=== PATIENT | female | born 1985 | race Asian ===

== ENCOUNTER 2024-04-04 09:22 | Outpatient (AMB) | payer OTHER, SELFPAY ==
--- NOTE | 2024-04-04 09:58 | AM.OFFWIN_ITS ---
Intake Vital Signs 04/04/24 10:08 Height 4 ft 7 in Weight 149 lb 6 oz BMI 34.7 BP 132/64 Blood Pressure Location Rt brachial Position Sitting Respiration 16 Pulse 72 Pulse Source Pulse Oximeter Temp 98.8 F Temp Source Oral Pulse Oximetry (%) 99 Oxygen Delivery Method Room Air Intake Visit Reasons: est/ coughing/headache/eye sore Intake Note: patient here c/o coughing, headache, sore eyes. Patient Tobacco Use Status: Never used Tobacco Instructor Traffic Safety Required: Yes Instructor Traffic Safety Language: Tamil Instructor Traffic Safety Name: Catalina [id number] Is last menstrual period known: Yes Last menstrual period: 03/07/24 Post menopausal: No Patient : No Allergies No Known Allergies Allergy (Verified 04/04/24 10:32) Medication List - Last Reconciled 04/04/24 by Horacio Silva CNP budesonide-formoterol 160-4.5 mcg/actuation inhalation cetirizine (Zyrtec) 10 mg PO DAILY Do you need a note to return to daycare/school/sports/work: No HPI HPI Comments History of Present Illness Details 38 y/o Tamil speaking female presents wi th complaints of severe headache, productive cough with yellow phlegm, and generalized body aches. Her symptoms have been ongoing for the past 4 days and have progressively worsened. She has been taking Tylenol every 6 hours with slight improvement. She notes associated fever but denies chills. She denies sick contacts. She had a negative home covid test yesterday. PFSH Social History Patient Tobacco Use Status: Never used Tobacco Patient : No Female Reproductive History Menstrual Date of last menstrual period: 03/07/24 Review of Systems Const Details: Denies chills, Denies fatigue, Denies fever(s), Denies headache(s) and Denies weakness ENT Reports as per HPI Cardiac Denies chest pain, Denies claudication, Denies leg edema, Denies lightheadedness, Denies palpitations, Denies dyspnea, Denies dyspnea on exertion, Denies orthopnea and Denies other (Loss of consciousness) Resp Reports cough, Denies excessive phlegm production, Denies dyspnea, Denies dyspnea on exertion, Denies snoring and Denies wheezing Physical Exam Vital Signs: Last Vital Signs Temp 98.8 F 04/04/24 10:08 Pulse 72 04/04/24 10:08 Resp 16 04/04/24 10:08 BP 132/64 04/04/24 10:08 Pulse Ox 99 04/04/24 10:08 Oxygen Delivery Method Room Air 04/04/24 10:08 BMI result Body Mass Index 34.7 Const Other: General: comfortable and no acute distress Orientation/consciousness: patient oriented x3 ENT Head is normocephalic Bilateral ear canal and TM are normal Nasal turbinates and oropharynx are pink and moist Sinuses are nontender with palpation No auricular or cervical lymphadenopathy Chest Chest palpation & inspection: normal inspection of the chest Resp Auscultation: clear to auscultation bilaterally Cardiac Palpation: normal PMI Heart sounds: S1 normal heart sound present, S2 normal heart sound present, no gallops, no murmur, no rubs Assessment & Plan Assessment & Plan (1) Viral upper respiratory illness: Code(s): J06.9 - Acute upper respiratory infection, unspecified Plan: Likely viral illness though possibly allergies. No exam evidence of bacterial infection Viral illness There is no antibiotic medication for viruses.? They must run their course.? Most average 5-7 days but 7-10 days is not uncommon and up to 14 days is still possible.? A cough is often the last symptom to resolve and this can last for weeks in some cases. Rest Hydrate well -? Drink plenty of fluids.? Especially water. Tylenol or ibuprofen for muscle aches, headache, fever/discomfort Cannot rule out COVID-19/RSV/Flu infection Nasal swab acquired and will be sent to the lab Zyrtec as prescribed Return for new or worsening symptoms Verbalized understanding and agreed with treatment plan. Orders: Orders SARS-CoV2/FLU/RSV Today J06.9 - Acute upper respiratory infection, unspecified Medications: New cetirizine (Zyrtec) 10 mg PO DAILY 30 tabs 0RF Coding Level of Care Code Est Pt Level 3 (78102) Diagnoses Viral upper respiratory illness J06.9
[2024-04-04 10:08] VITALS: BP 132/64; PULSE 72; RESP 16; TEMP 37.1; O2SAT 99; BMI 34.7
== END 2024-04-04 10:34 | disposition home or self-care (01) ==
PROVIDERS: Visit Provider Nurse Practitioner Family
DX: J06.9 Acute upper respiratory infection, unspecified (principal)

== ENCOUNTER 2024-04-04 09:22 | Outpatient (REF) | payer OTHER, SELFPAY ==
[2024-04-04 15:47] LABS: Influenza A PCR NEGATIVE (Negative); Influenza B PCR NEGATIVE (Negative); Resp Syncy Virus RNA Qual PCR NEGATIVE (Negative); SARS COV2 PCR INHOUSE NEGATIVE (Negative)
== END 2024-04-04 09:23 | disposition home or self-care (01) ==
LOC: HO.LAB 09:22
PROVIDERS: Visit Provider Nurse Practitioner Family
DX: J06.9 Acute upper respiratory infection, unspecified (principal)
CPT/HCPCS: 0241U; 99212

== ENCOUNTER 2024-04-17 09:13 | Outpatient (AMB) | payer OTHER, SELFPAY ==
--- NOTE | 2024-04-17 09:16 | MHC.PC.OV ---
Vital Signs 04/17/24 09:23 Height 4 ft 7 in Weight 150 lb BMI 34.9 BP 122/70 Blood Pressure Location Rt brachial Position Sitting Respiration 12 Pulse 73 Pulse Source Pulse Oximeter Pulse Oximetry (%) 98 Oxygen Delivery Method Room Air Intake Visit Reasons: est care/asthma Intake Note: follow up on asthma Fork Truck Driver Required: Yes Fork Truck Driver Language: [place] Fork Truck Driver Name: Catalina [id number] Allergies No Known Allergies Allergy (Verified 04/17/24 09:27) Medication List - Last Reconciled 04/17/24 by Linda Boogie, [facility] budesonide-formoterol 160-4.5 mcg/actuation inhalation cetirizine (Zyrtec) 10 mg PO DAILY Tobacco use date assessed: 04/17/24 Dental Screening Dental Screen Date: 04/17/24 Did you have a dental visit in the last 12 months?: Yes Did you have a dental problem in the last 6 months where you did not have access to dental care?: No Was dental information given to patient?: Patient has dentist HPI HPI Comments History of Present Illness Details History of Present Illness The patient is a 38-year-old female presenting with eczema, obesity, asthma and allergic rhinitis. She reports using an inhaler for her asthma w/ good control. She admits to not rinsing her mouth after use. She also sometimes uses Zyrtec for allergies but notes experiencing cold-like symptoms and headaches occasionally for her allergy sx, of which are resolved @ current time. No surgeries have been performed in the past. - Utilizes an anthropology instructor for the appointment, Fork Truck Driver [id number]. - No surgeries or major medical events noted in the past. Health Maintenance - Tdap 2022 - Discussion regarding flu vaccination, done today - Inquiry into updating blood work. - Review of contraception and last Pap smear status, done at [facility] in the last 1 year ROS c/o itchy ears bialt c/o generalized joint aches and pains assoc w/ fatigue, present for years Physical Exam General: Well developed, well nourished, in no acute distress. Appears stated age. Head: Normocephalic, atraumatic. Eyes: Pupils are equal, round and reactive to light and accommodation. Conjunctivae are clear. Vision grossly normal. No glasses worn. Ears: Tympanic membranes clear bilaterally, external auditory canal within normal limits. Itchy, cream prescribed for use as needed. Nose: Patent, without discharge. Mouth: There are no ulcers or lesions noted. No inflammation, no post nasal drip, no plaques nor exudates. Advised to rinse mouth after inhaler use to prevent rash. Neck: Supple, no adenopathy or thyromegaly. No pain upon palpation. Lungs: Clear to auscultation bilaterally. No rales, rhonchi or wheeze noted. Good air flow in all valdez. Advised to continue using inhaler. Heart: Regular rate and rhythm. No murmurs, click, rubs or gallops are noted. Abdomen: Bowel sounds present in all quadrants. The abdomen is soft, nontender, with no masses or organomegaly noted. No hernias are noted. Musculoskeletal: Joints are nontender, without swelling, redness, or effusions. Range of motion is observed to be normal. Pulses: Peripheral pulses are equal and palpable bilaterally. Extremities: No clubbing, cyanosis nor edema is noted. Neurologic: Gait and station normal. Cranial Nerves 2-12 intact. Motor strength grossly symmetrical and intact. No sensory loss. Balance normal. Skin: No rashes, ulcers, or lesions noted. Turgor is good. Skin color is good. Hair and nails are without abnormalities. Psych: Normal eye contact, affect and mood appropriate, and normal interactions. Patient is alert and appropriate to context. Mood is reported as good, no concerns about anxiety or depression. Plan - Asthma: Continue current inhaler use; emphasize rinsing mouth post-use. - Allergic Rhinitis: Continue with Zyrtec as needed for symptoms. - Administer Flu vaccine today - Order blood work for general health monitoring. - Evaluate records for updated Pap smear status and arrange follow-up if necessary. Patient was informed and verbally consented to the use of an ambient scribe for clinic note documentation during this visit. Discussion Notes I discussed the importance of rinsing the mouth after using the asthma inhaler to prevent oral irritation. We reviewed her current asthma and allergy management, emphasizing adherence to medication. We discussed vaccinations. We agreed on completing a blood work panel today to monitor her general health status. Patient Instructions - Rinse your mouth with water after using the inhaler to avoid oral rash. - Continue using Zyrtec for allergy symptoms as needed. - Receive the Tdap vaccine today. - Receive the flu shot today. - Complete blood work as ordered. - Follow up on Pap smear status and schedule accordingly. - desonide for external eczema of ears RTO 1 year CPE, sooner PRN [facility] Social History Housing: Apartment Patient Tobacco Use Status: Never used Tobacco Cognitive needs: No Hearing needs: No Vision needs: No Questionnaire PHQ-9 Over the last 2 weeks, how often have you been bothered by any of the following problems? 1. Little interest or pleasure in doing things: not at all 2. Feeling down, depressed, or hopeless: not at all 3. Trouble falling or staying asleep, or sleeping too much: several days 4. Feeling tired or having little energy: several days 5. Poor appetite or overeating: several days 6. Feeling bad about yourself - or that you are a failure or have let yourself or your family down: not at all 7. Trouble concentrating on things, such as reading the newspaper or watching television: several days 8. Moving or speaking so slowly that other people could have noticed. Or the opposite - being so fidgety or restless that you have been moving around a lot more than usual: several days 9. Thoughts that you would be better off or of hurting yourself in some way: not at all Total score: 5 Depression Screening Interpretation: Negative Depression Screening Done: Yes 93975 - PHQ-9 Billing: Yes Source: Developed by Drs. Jeremy Tristan, Kayla Toure, Bayron Manrique and colleagues, with an educational britt from [employer] Thrive Questionnaire Date Thrive assessed: 04/17/24 I am a: Patient What is your living situation today?: I have a steady place to live Within the past 12 months, did the food you bought not last and you didn't have the money to get more?: Sometimes True Within the past 12 months, did you worry whether your food would run out before you got money to buy more?: Never true Do you have trouble paying for medicines?: No Do you have trouble getting transportation to medical appointments?: No Do you have trouble paying your heating and electricity bill?: No Do you have trouble taking care of your child, family member or friend?: Yes Do you have trouble with day-to-day activities such as bathing, preparing meals, shopping, managing finances, etc.?: No Are you currently unemployed and looking for a job?: No Are you interested in more education?: No Please select the resources that you would like help with: None Currently or been in a relationship where the following occur: No concerns reported THRIVE Score: 1 AUDIT C Alcohol Use Questionnaire (AUDIT-C) 1. How often do you have a drink containing alcohol?: Never 3. How often do you have six or more drinks on one occasion?: Never Total Score: 0 Score Reviewed/Action Taken: Yes ARI-7 AMB Questionnaire ARI-7 Date ARI - 7 assessed: 04/17/24 Feeling nervous, anxious, or on edge: 0 = Not at all Not being able to stop or control worryin = Several days Worrying too much about different things: 0 = Not at all Trouble relaxin = Several days Being so restless that it is hard to sit still: 0 = Not at all Becoming easily annoyed or irritable: 0 = Not at all Feeling afraid as if something awful might happen: 0 = Not at all Total ARI-7 score (0-4 normal; 5-9 mild; 10-14 moderate; 15-21 severe): 2 Source: Developed by Drs. Jeremy Tristan, Kayla Toure, Bayron Manrique and colleagues, with an educational britt from [employer] ARI-7 Assessment Billing ARI-7 Assessment Tool: ARI-7 Assessment 86289 ACT Questionnaire In the past 4 weeks, how much of the time did your asthma keep you from getting as much done at work, school or at home?: None of the time During the past 4 weeks, how often have you had shortness of breath?: Not at all During the past 4 weeks, how often did your asthma symptoms wake you up at night or earlier than usual in the morning?: Not at all During the past 4 weeks, how often have you had to use your rescue inhaler or nebulizer medication?: Not at all How would you rate your asthma control during the past 4 weeks?: Completely controlled ACT Interpretation: Negative Score: 25 Physical exam (Primary Care) Vital Signs: Last Vital Signs Pulse 73 04/17/24 09:23 Resp 12 04/17/24 09:23 BP 122/70 04/17/24 09:23 Pulse Ox 98 04/17/24 09:23 Oxygen Delivery Method Room Air 04/17/24 09:23 BMI result Body Mass Index 34.9 BMI Assessment/Plan discussion: High BMI High, discussed plan: lifestyle Tobacco/Smoking Status: Tobacco use Status Tobacco use date assessed 04/17/24 04/17/24 09:25 Patient Tobacco Use Status Never used Tobacco 04/17/24 09:16 PHQ-9: PHQ-9 Score PHQ-9: Total score 5 04/17/24 10:00 Depression Screening Interpretation: Negative Thrive Assessment: Date of Thrive Assessment Date Thrive assessed 04/17/24 04/17/24 09:16 Currently or been in a relationship where the following occur: No concerns reported Office Procedures Flu Questionnaire Does the patient have a severe egg allergy?: No Does the patient have severe life threatening allergies?: No Does the patient have a fever or illness today?: No Has the patient ever had Guillain-Decorah Syndrome?: No Has the patient ever had any past reaction to a flu shot?: No Immunizations Fluarix Triv 9122-1238 (PF) 45 mcg (15 mcg x 3)/0.5 mL IM syringe Performing Provider[facility] Performing Location: [facility] Administered by: Senait Chavez RN on 04/17/24 10:00 Dose Route Admin Location Dispensed Lot Number Expiration Date [facility] Batter Mixer 0.5 mL IM Right Deltoid 0.5 mL [id number] 11/20/24 [id number] EPV SOLAR VIS Given Date VIS Provided VIS Publication Date 04/17/24 Single Vaccine 20 Eligibility Eligibility Date Funding Source Not [facility] Eligible 04/17/24 Private Administration Comments: Did not have VIS available in [facility], provided patient with [place] language VIS. Coding Level of Care Code Est Pt Prev Care 18-39y(34399) Diagnoses Encounter for general adult medical examination without abnormal findings Z00.00 Mild intermittent asthma without complication J45.20 Asthma complication type: uncomplicated Influenza vaccine administered Z23 BMI 34.0-34.9,adult Z68.34 Class 1 obesity due to excess calories without serious comorbidity with body mass index (BMI) of 34.0 to 34.9 in adult E66.811; E66.09; Z68.34 Obesity type: due to excess calories Serious obesity comorbidity presence: without serious comorbidity Laboratory exam ordered as part of routine general medical examination Z00.00 Eczema of both external ears H60.543 Laterality: bilateral Chronic fatigue R53.82 Fatigue type: chronic, unspecified Additional Codes Asthma Control Questionnaire - ACT Interpretation: Negative ([id number]) ARI-7 Assessment Billing - ARI-7 Assessment Tool: ARI-7 Assessment 48926 ([id number]) PHQ-9 - 60083 - PHQ-9 Billing: Yes ([id number]) Assessment & Plan Assessment & Plan (1) Encounter for general adult medical examination without abnormal findings: Code(s): Z00.00 - Encounter for general adult medical examination without abnormal findings Category: Medical (2) Mild intermittent asthma: Code(s): J45.20 - Mild intermittent asthma, uncomplicated Category: Medical Qualifiers: Asthma complication type: uncomplicated Qualified Code(s): J45.20 - Mild intermittent asthma, uncomplicated (3) Influenza vaccine administered: Code(s): Z23 - Encounter for immunization (4) BMI 34.0-34.9,adult: Code(s): Z68.34 - Body mass index [BMI] 34.0-34.9, adult Category: Medical (5) Class 1 obesity with body mass index (BMI) of 34.0 to 34.9 in adult: Code(s): E66.811 - Obesity, class 1; Z68.34 - Body mass index [BMI] 34.0-34.9, adult Category: Medical Qualifiers: Obesity type: due to excess calories Serious obesity comorbidity presence: without serious comorbidity Qualified Code(s): E66.811 - Obesity, class 1; E66.09 - Other obesity due to excess calories; Z68.34 - Body mass index [BMI] 34.0-34.9, adult (6) Laboratory exam ordered as part of routine general medical examination: Code(s): Z00.00 - Encounter for general adult medical examination without abnormal findings Category: Medical (7) Eczema of external ear: Code(s): H60.549 - Acute eczematoid otitis externa, unspecified ear Category: Medical Qualifiers: Laterality: bilateral Qualified Code(s): H60.543 - Acute eczematoid otitis externa, bilateral (8) Fatigue: Code(s): R53.83 - Other fatigue Qualifiers: Fatigue type: chronic, unspecified Qualified Code(s): R53.82 - Chronic fatigue, unspecified Plan . Orders: Orders Comprehensive Met. Panel Today Z00.00 - Encounter for general adult medical examination without abnormal findings IRON PROFILE Today Z00.00 - Encounter for general adult medical examination without abnormal findings Lipid Panel Today Z00.00 - Encounter for general adult medical examination without abnormal findings Microalbumin, Random (w Creat) Today Z00.00 - Encounter for general adult medical examination without abnormal findings Vitamin D 25-OH Total Today Z00.00 - Encounter for general adult medical examination without abnormal findings Vitamin B12 and Folate Today Z00.00 - Encounter for general adult medical examination without abnormal findings Complete Blood Count no Diff Today Z00.00 - Encounter for general adult medical examination without abnormal findings Hemoglobin A1c Today Z00.00 - Encounter for general adult medical examination without abnormal findings TSH reflex Free T4 Today Z00.00 - Encounter for general adult medical examination without abnormal findings Influenza [id number] Immunization Today Z23 - Encounter for immunization Medications: New desonide 0.05% apply to external ears as needed 1 appl topical BID-QID PRN 15 grams 2RF itching Changed From budesonide-formoterol 160-4.5 mcg/actuation inhalation To budesonide-formoterol 160-4.5 mcg/actuation 2 puffs inhalation BID 10.2 grams 11RF Patient Instructions: Health screenings for women You should visit your health care provider from time to time, even if you are healthy. The purpose of these visits is to: Screen for medical issues Assess your risk for future medical problems Encourage a healthy lifestyle Update vaccinations and other preventive care services Help you get to know your provider in case of an illness Information Even if you feel fine, you should still see your provider for regular checkups. These visits can help you avoid problems in the future. For example, the only way to find out if you have high blood pressure is to have it checked regularly. High blood sugar and high cholesterol levels also may not have any symptoms in the early stages. A simple blood test can check for these conditions. There are specific times when you should see your provider or receive specific health screenings. The [place] Preventive Services Task Force publishes a list of recommended screenings. Below are screening guidelines for women ages 18 to 39. BLOOD PRESSURE SCREENING Your blood pressure should be checked at least once every 3 to 5 years if: Your blood pressure is in the normal range (top number less than 120 mm Hg and bottom number less than 80 mm Hg) You don't have risk factors for high blood pressure Ask your provider if you need your blood pressure checked more often if: The top number is 120 to 129 mm Hg or the bottom number is 70 to 79 mm Hg You have diabetes, heart disease, kidney problems, are overweight, or have certain other health conditions You have a first-degree relative with high blood pressure You are Black You had high blood pressure during a If the top number is 130 mm Hg or greater or the bottom number is 80 mm Hg or greater, this is considered stage 1 hypertension. Schedule an appointment with your provider to learn how you can reduce your blood pressure. Watch for blood pressure screenings in your area. Ask your provider if you can stop in to have your blood pressure checked. BREAST CANCER SCREENING Experts do not agree about the benefits of breast self-exams in finding breast cancer or saving lives. Talk to your provider about what is best for you. A screening mammogram is not recommended for most women under age 40. Your provider may discuss and recommend mammograms, MRI scans, or ultrasounds if you have an increased risk for breast cancer, such as: A mother or sister who had breast cancer at a young age (most often starting screening earlier than the age the close relative was diagnosed) You carry a high-risk genetic marker CERVICAL CANCER SCREENING Cervical cancer screening should start at age 21 years unless your provider advises otherwise. After the first test: Women ages 21 through 29 should have a Pap test every 3 years. Exoprts do not agree on whether HPV testing is recommended for this age group. Women ages 30 through 65 should be screened with either a Pap test every 3 years or the HPV test every 5 years or both tests every 5 years (called cotesting ). Women who have been treated for precancer (cervical dysplasia) should continue to have Pap tests for 20 years after treatment or until age 65, whichever is longer. If you have had your uterus and cervix removed (total hysterectomy), and you have not been diagnosed with cervical cancer or precancer (high grade cervical neoplasia), you do not need cervical cancer screening. CHOLESTEROL SCREENING Cholesterol screening should begin at: Age 45 for women with no known risk factors for coronary heart disease Age 20 for women with known risk factors for coronary heart disease Repeat cholesterol screening should take place: Every 5 years for women with normal cholesterol levels More often if changes occur in lifestyle (including weight gain and diet) More often if you have diabetes, heart disease, kidney problems, or certain other conditions DIABETES SCREENING You should be screened for diabetes starting at age 35 and then repeated every 3 years if you have no risk factors for diabetes. Screening may need to start earlier and be repeated more often if you have other risk factors for diabetes, such as: You have a first degree relative with diabetes. You are overweight or have obesity. You have high blood pressure, prediabetes, or a history of heart disease. Screening for diabetes should be done if you are planning to become and you are overweight and have other risk factors such as high blood pressure. DENTAL EXAM Go to the dentist once or twice every year for an exam and cleaning. Your dentist will evaluate if you need more frequent visits. EYE EXAM Have an eye exam every 5 to 10 years before age 40. If you have vision problems, have an eye exam every 2 years or more often if recommended by your provider. You should have an eye exam that includes an examination of your retina (back of your eye) at least every year if you have diabetes. IMMUNIZATIONS Commonly needed vaccines include: Flu shot: get one every year. COVID-19 vaccine: ask your provider what is best for you. Tetanus-diphtheria and acellular pertussis (Tdap) vaccine: have one at or after age 19 as one of your tetanus-diphtheria vaccines if you did not receive it as an adolescent. Tetanus-diphtheria: have a booster (or Tdap) every 10 years. Varicella vaccine: receive 2 doses if you never had chickenpox or the varicella vaccine. Hepatitis B vaccine: receive 2, 3, or 4 doses, depending on your exact circumstances. Measles, mumps, and rubella (MMR) vaccine: receive 1 to 2 doses if you are not already immune to MMR. Your provider can tell you if you are immune. Ask your provider about the human papillomavirus (HPV) vaccine if: You have not received the HPV vaccine in the past You have not completed the full vaccine series (you should catch up on this shot) Ask your provider if you should receive other immunizations if you have certain health problems that increase your risk for some diseases such as pneumonia. INFECTIOUS DISEASE SCREENING Women who are sexually active should be screened for chlamydia and gonorrhea up until age 25. Women 25 years and older should be screened for chlamydia and gonorrhea if at high risk. Screening for hepatitis C: All adults ages 18 to 79 should get a one-time test for hepatitis C. people should be screened at every . Screening for human immunodeficiency virus (HIV): All people ages 15 to 65 should get a one-time test for HIV. Depending on your lifestyle and medical history, you may also need to be screened for infections such as syphilis and HIV, as well as other infections. PHYSICAL EXAM All adults should visit their provider from time to time, even if they are healthy. The purpose of these visits is to: Screen for disease Assess your risk of future medical problems Encourage a healthy lifestyle Update your vaccinations and other preventive care services Maintain a relationship with a provider in case of an illness Your height, weight, and BMI should be checked at every exam. During your exam, your provider may ask you about: Depression and anxiety Diet and exercise Alcohol and tobacco use Safety issues, such as using seat belts, smoke detectors, and intimate partner violence Your medicines and risk for interactions SKIN SELF-EXAM Your provider may check your skin for signs of skin cancer, especially if you're at high risk, such as if you: Have had skin cancer before Have close relatives with skin cancer Have a weakened immune system OTHER SCREENING Talk with your provider about colon cancer screening if you have a strong family history of colon cancer or polyps, or if you have had inflammatory bowel disease or polyps yourself. Routine bone density screening of women under 40 is not recommended. Walk-In Care (Urgent Care): We Make it Easy Walk-in for urgent medical issues such as: ? Seasonal Allergies ? Insect Bites ? Cough ? Diarrhea ? Acute Asthma Attacks ? Back, Knee or Joint Pain ? Ear Infection ? Fever without a Rash ? Headaches ? Nausea ? [place] Eye, Rash or Skin Irritation ? Sore Throat ? Sports Physicals ? Vomiting Most insurances are accepted. Patients do not need to be part of the [facility] to seek care at the walk-in clinic. Locations [facility] [address], [place] [address] ? [phone] [facility] Walk-In Care in [place] provides services to ages 18 and over. Open Wednesday-Wednesday: 8 a.m. to 5 p.m. and Wednesday: 9 a.m. to 3 p.m.* *Hours may vary due to staffing availability. To confirm Walk-In Care hours in [place], please call [phone]. [address] [place] [address] ? [phone] [facility] Walk-In Care in [place] provides services to ages 12 and over. Open Wednesday-Wednesday: 8 a.m. to 5 p.m. Hours may vary due to staffing availability. To confirm Walk-In Care hours in [place], please call [phone]. LABORATORY SERVICES: [facility] ? Primary Location [address] [place] [address] Wednesday through Wednesday 6:00 AM ? 5:00 PM Wednesday 7:00 AM ? 11:00 AM* [phone] The [facility] is centrally located near the front entrance of the [facility] for easy outpatient access. Convenient parking is provided for outpatients. *Hours may vary due to staffing availability. To confirm Laboratory hours for any location, please call [phone]. Offsite Location For your convenience, we offer offsite laboratory draw stations at the following locations: [address] [place] [address] ? [address], [address] Wednesday through Wednesday 7:30 AM ? 1:00 PM* [phone] *Hours may vary due to staffing availability. To confirm Laboratory hours for any location, please call [phone]. [place] ? [address] Wednesday through Wednesday 6:00 AM ? 3:30 PM* Wednesday 6:30 AM ? 3 PM* [phone] *Hours may vary due to staffing availability. To confirm Laboratory hours for any location, please call [phone] [place] [address] Wednesday through Wednesday 7:30 AM ? 4:00 PM* [phone] *Hours may vary due to staffing availability. To confirm Laboratory hours for any location, please call [phone] [place] [address] Wednesday through 9:00 AM ? 4:00 PM* *Hours may vary due to staffing availability. To confirm Laboratory hours for any location, please call [phone]. Appointments are not necessary. Walk-ins are welcome. Like all the departments throughout the [facility], our Lab undergoes frequent reviews to ensure the quality and accuracy of test results, and our staff takes special pride in its status as a nationally accredited facility. Patient Portal: ONE PATIENT. ONE RECORD. BETTER CARE. [facility] has a fully integrated, cutting-edge mobile electronic health information system that has revolutionized the way we care for our patients and manage our organization. This system improves communication and coordination enabling us to provide safe, higher-quality care, and an overall positive experience for staff and patients. Our first priority, as always, is to deliver the highest quality care possible. The system is running in the background supporting that priority. This portal is for all [facility] services and practices. If you are experiencing any technical difficulties with enrolling or logging into the Patient Portal please complete the [facility] Patient Portal Technical Support Form. [facility] now offers a new secure on-line interactive tool for patients to review their health information ? Patient Portal. This interactive web portal will enable patients and their families to take an active role in their care by providing easy, secure access to their health information via the internet. The Patient Portal provides patients with instant access to their health information, including laboratory results, medications, allergies, demographic information, visit history, and more. In addition to managing their own care, parents and health care proxies with authorized consent will appreciate the ability to access the records of those individuals for whom they provide care. Please note: if you wish to gain access (Proxy) to another patient?s portal, you will be required to come to the Medical Records Department in person at [facility]. Both the patient giving proxy access and the proxy will need to provide photo identification and complete the appropriate authorization. The Patient Portal also allows track their appointments online. The [facility] Patient Portal also saves patients time by allowing them to submit updates to their demographic and contact information prior to their visits. Portal email notifications will also alert patients to any new activity on their portal, such as test results and new appointments. In order to initially enroll in the [facility] Patient Portal, you will need to enter some required information including the following: ? your [facility] Medical Record number ? your personal home email address ? name ? date of Please note: In order to enroll in the [facility] Patient Portal, we need to have your email address on file in your electronic medical record. The email address needs to be specific for one person (yourself) in order for your Portal enrollment to be successful. You can update your email address in person with our Registration staff when you are registering for a hospital visit. Otherwise, you will need to come to the Health Information Management (Medical Records) Department at [facility]. We are open from Wednesday ? Wednesday from 7:30 a.m. ? 4:30 p.m. You will be required to present a photo id. Once you have successfully enrolled in the Patient Portal, you will receive a one-time user id and password for the Portal, sent to your email address. This will allow you to log into the Patient Portal within 99 hrs and reset your own logon id and password, and define personal security questions. Once your permanent login and password have been set, you can log into the [facility] Patient Portal at any time via the blue button above or from the Portal Logon button on any page of the [facility] website. [facility] and [facility] encourage all of our patients to enroll in Patient Portal as it presents a valuable opportunity for patients and their families to actively participate in their care and stay healthy Welcome to [facility]. We look forward to working with you.
[2024-04-17 09:23] VITALS: BP 122/70; PULSE 73; RESP 12; O2SAT 98; BMI 34.9
== END 2024-04-17 09:57 | disposition home or self-care (01) ==
PROVIDERS: PCP Nurse Practitioner Family; Visit Provider Nurse Practitioner Family
DX: Z00.00 Encounter for general adult medical examination without abnormal findings (principal); J45.20 Mild intermittent asthma, uncomplicated; Z23 Encounter for immunization; Z68.34 Body mass index [BMI] 34.0-34.9, adult; E66.811 Obesity, class 1; E66.09 Other obesity due to excess calories; H60.543 Acute eczematoid otitis externa, bilateral; R53.82 Chronic fatigue, unspecified

== ENCOUNTER → 2024-04-17 09:13 | Outpatient (BNVA) | payer OTHER, SELFPAY | PROVIDERS: Visit Provider Nurse Practitioner Family | DX: Z00.00 Encounter for general adult medical examination without abnormal findings (principal); Z23 Encounter for immunization; J45.20 Mild intermittent asthma, uncomplicated; E66.811 Obesity, class 1; E66.09 Other obesity due to excess calories; Z68.34 Body mass index [BMI] 34.0-34.9, adult; H60.543 Acute eczematoid otitis externa, bilateral; R53.82 Chronic fatigue, unspecified; Z71.3 Dietary counseling and surveillance | CPT/HCPCS: 90471; 90656; 96127; 96160; 99395 ==

== ENCOUNTER 2024-04-17 10:11 | Outpatient (REF) | payer OTHER, SELFPAY ==
[2024-04-17 14:30] LABS: Hematocrit 37.7 % (37.0-47.0); Hemoglobin 12.7 g/dl (12.0-16.0); Mean Corpuscular HGB Conc 33.7 g/dl (31.0-35.0); Mean Corpuscular Hemoglobin 28.6 pg (27.0-33.0); Mean Corpuscular Volume 84.9 fL (80.0-98.0); Mean Platelet Volume 9.5 fL (9.4-12.3); Platelet Count 310 X10*3/uL (160-400); Red Blood Count 4.44 X10*6/uL (4.20-5.50); Red Cell Distribution Width 12.8 % (11.0-16.0); White Blood Count 5.3 X10*3/uL (4.8-10.8)
[2024-04-17 14:41] LABS: Estimated Average Glucose 105 mg/dL; Hemoglobin A1C 111.0988 umol/L; Hemoglobin A1c % 5.3 % (<6.0); Total Hemoglobin (HGBA1C) 3188.2583 umol/L
[2024-04-17 15:00] LABS: Alanine Aminotransferase 21 U/L (0-31); Albumin Level 4.2 g/dL (3.5-5.0); Alkaline Phosphatase 44 U/L (39-117); Anion Gap 12 (12-20); Aspartate Amino Transferase 30 U/L (5-31); Bilirubin Total 0.3 mg/dL (0.0-1.0); Blood Urea Nitrogen 15 mg/dL (9-16); Calcium 9.3 mg/dL (8.4-10.2); Carbon Dioxide 23 mmol/L (22-29); Chloride 106 mmol/L (96-108); Cholesterol 203 mg/dL (<200); Estimated Glomerular Filt Rate > 60; Glucose Random 87 mg/dL (60-115); HDL Cholesterol 51 mg/dL (>40); Iron 65 mcg/dL (30-160); LDL Cholesterol Calculated 117 mg/dL (<100); Percent Iron Saturation 19 % (15-50); Potassium 4.1 mmol/L (3.3-5.1); Sodium 137 mmol/L (135-145); Total Iron Binding Capacity 340 mcg/dL (228-428); Triglycerides 177 mg/dL (<150); Unsaturated Iron Binding 275 ug/dL
[2024-04-17 15:09] LABS: Vitamin D 25-OH Total 35.5 ng/mL (>30)
[2024-04-17 15:14] LABS: Folate 7.6 ng/mL (> or = 4.0); Vitamin B12 755 pg/mL (200-900)
[2024-04-17 15:29] LABS: Microalbum/Creatinine Ratio Ur 8.3 ug/mg cr (<30)
== END 2024-04-17 10:12 | disposition home or self-care (01) ==
LOC: HO.WFDLDS 10:11
PROVIDERS: Visit Provider Nurse Practitioner Family
DX: Z00.00 Encounter for general adult medical examination without abnormal findings (principal)
CPT/HCPCS: 36415; 80053; 80061; 82043; 82306; 82570; 82607; 82746; 83036; 83540; 84443; 85027

== ENCOUNTER 2024-05-23 12:51 | Outpatient (AMB) | payer OTHER, SELFPAY ==
[2024-05-23 13:03] VITALS: BP 120/70; PULSE 76; O2SAT 98; BMI 34.3
--- NOTE | 2024-05-23 13:03 | A.OFFPC_ITS ---
Vital Signs 05/23/24 13:03 Height 4 ft 7 in Weight 147 lb 8 oz BMI 34.3 BP 120/70 Blood Pressure Location Lt brachial Position Sitting Pulse 76 Pulse Source Pulse Oximeter Pulse Oximetry (%) 98 Intake Visit Reasons: Back Pain - Headache Intake Note: pt is here for c/o of back pain for 1 week, has been seeni n the ER ( has paperwork) and headache started 3 days ago. Business Practices Supervisor Required: Yes Business Practices Supervisor Language: Tamil Business Practices Supervisor Name: jamar #[id number] Allergies No Known Allergies Allergy (Verified 05/23/24 13:44) Medication List - Last Reconciled 05/23/24 by Linda Boogie, [facility]- budesonide-formoterol 160-4.5 mcg/actuation 2 puffs inhalation BID cetirizine (Zyrtec) 10 mg PO DAILY desonide 0.05% 1 appl topical BID-QID PRN Tobacco use date assessed: 04/17/24 Dental Screening Dental Screen Date: 04/17/24 HPI HPI Comments History of Present Illness Details [employer] [id number] History of Present Illness The patient is a 38-year-old female presenting with back pain and headache. One week prior, she experienced acute, severe pain on one side of her back - left -, prompting an emergency department visit. At that time, she was treated with a topical cream and an oral medication, which improved her symptoms. However, the pain has since shifted to the opposite side and is severe enough to impact her breathing. She denies any history of injury. Additionally, she reports h eadaches, which she describes as feeling like sinus congestion. This began approximately 3 to 4 days prior to the visit. The patient is also managing asthma and has experienced issues with her inhaler prescription refill stating she did not get it. Wonders why she has out of pocket costs for her meds/treatment. Reviewed 05/14/24 [facility] [place], new RX for voltaren Physical Exam General: Awake, alert. No apparent distress Eyes: Sclera and conjunctiva clear bilaterally Nose: Nares patent, turbinates within normal limits, no sinus tenderness with palpation bilaterally Ears: Tympanic membranes intact and clear bilaterally Throat: Moist mucosa membrane, pharynx within normal limits Cardiovascular: Regular rate and rhythm Respiratory: Clear to auscultation bilaterally Reproducible pain over right midback, paraspinally c/w muscle spasm/strain. Plan - Refill and ensure the availability of asthma inhaler. - Prescribe prednisone to be taken once daily with food for five days to alleviate back pain and headache. - Advise continued use of topical cream as needed if current supply is sufficient. - Instruct on pharmacy follow-up regardi ng the inhaler prescription. - Consideration of sinus issues as a con tributing factor to headaches. Patient was informed and verbally consented to the use of an ambient scribe for clinic note documentation during this visit. Discussion Notes During our discussion, I informed the patient that the back pain is likely due to a muscle strain, given the acute onset and lateral shifting of the pain. I prescribed a muscle relaxant for the management of pain and headaches and advised her to continue using her current topical treatment. I clarified the issues surrounding her inhaler prescription and assured her that I sent the prescription to [facility], advising her to check with the pharmacy. Told her to call insurance re: cost of meds/tx. We discussed the importance of managing asthma with medication, despite the absence of immediate symptoms, and reiterated the need for follow-up if concerns persist. I encouraged the patient to reach out if symptoms do not improve or worsen, and scheduled her next check-up accordingly. Patient Instructions - Take prescribed medication for pain an d headaches once daily with food for five days. - Use the topical cream on the affected area if needed. - Verify receipt and availability of the inhaler at the pharmacy. - Seek immediate medical attention if br eathing difficulties increase or if pain becomes unmanageable. - Schedule and attend your next follow-u p appointment as discussed. - Contact the clinic if symptoms do not improve or new symptoms develop. This note is constructed using voice recognition software. While every effort has been made to ensure accuracy in cigarette packer, still errors may have been included Sometimes, these errors may affect the content or meaning of the given sentence . Total time spent caring for the patient today was 40 minutes. This includes time spent before the visit reviewing the chart, time spent during the visit, and time spent after the visit on documentation [facility] Social History Housing: Apartment Patient Tobacco Use Status: Never used Tobacco Cognitive needs: No Hearing needs: No Vision needs: No Questionnaire Thrive Questionnaire Date Thrive assessed: 04/17/24 I am a: Patient What is your living situation today?: I have a steady place to live Within the past 12 months, did the food you bought not last and you didn't have the money to get more?: Sometimes True Within the past 12 months, did you worry whether your food would run out before you got money to buy more?: Never true Do you have trouble paying for medicines?: No Do you have trouble getting transportation to medical appointments?: No Do you have trouble paying your heating and electricity bill?: No Do you have trouble taking care of your child, family member or friend?: Yes Do you have trouble with day-to-day activities such as bathing, preparing meals, shopping, managing finances, etc.?: No Are you currently unemployed and looking for a job?: No Are you interested in more education?: No Please select the resources that you would like help with: None Currently or been in a relationship where the following occur: No concerns reported THRIVE Score: 1 ARI-7 AMB Questionnaire ARI-7 Date ARI - 7 assessed: 04/17/24 Source: Developed by Drs. Jeremy Tristan, Kayla Toure, Bayron Manrique and colleagues, with an educational britt from [employer]. Physical exam (Primary Care) Vital Signs: Last Vital Signs Pulse 76 05/23/24 13:03 BP 120/70 05/23/24 13:03 Pulse Ox 98 05/23/24 13:03 BMI result Body Mass Index 34.3 Tobacco/Smoking Status: Tobacco use Status Tobacco use date assessed 04/17/24 05/23/24 13:04 Patient Tobacco Use Status Never used Tobacco 05/23/24 13:04 Thrive Assessment: Date of Thrive Assessment Date Thrive assessed 04/17/24 05/23/24 13:04 Currently or been in a relationship where the following occur: No concerns reported Coding Level of Care Code Est Pt Level 5 (64637) Complex EM visit Add On G2211 Diagnoses Hospital discharge follow-up Z09 Health education Z71.9 Mild intermittent asthma without complication J45.20 Asthma complication type: uncomplicated Acute right-sided thoracic back pain M54.6 Back pain location: thoracic back pain Chronicity: acute Assessment & Plan Assessment & Plan (1) Hospital discharge follow-up: Code(s): Z09 - Encounter for follow-up examination after completed treatment for conditions other than malignant neoplasm (2) Health education: Code(s): Z71.9 - Counseling, unspecified Category: Medical (3) Mild intermittent asthma: Code(s): J45.20 - Mild intermittent asthma, uncomplicated Category: Medical Qualifiers: Asthma complication type: uncomplicated Qualified Code(s): J45.20 - Mild intermittent asthma, uncomplicated (4) Right-sided back pain: Code(s): M54.9 - Dorsalgia, unspecified Qualifiers: Back pain location: thoracic back pain Chronicity: acute Qualified Code(s): M54.6 - Pain in thoracic spine Plan . Medications: New prednisone 20 mg PO DAILY 5 tabs 0RF diclofenac sodium 1% 2 grams topical QID 100 grams 12RF Refilled budesonide-formoterol 160-4.5 mcg/actuation 2 puffs inhalation BID 10.2 grams 11RF
== END 2024-05-23 13:56 | disposition home or self-care (01) ==
PROVIDERS: PCP Nurse Practitioner Family; Visit Provider Nurse Practitioner Family
DX: J45.20 Mild intermittent asthma, uncomplicated (principal); M54.6 Pain in thoracic spine; Z09 Encounter for follow-up examination after completed treatment for conditions other than malignant neoplasm; Z71.9 Counseling, unspecified

== ENCOUNTER 2024-07-05 12:53 | Outpatient (AMB) | payer OTHER, SELFPAY ==
--- NOTE | 2024-07-05 13:09 | MHC.PC.OV ---
Vital Signs 07/05/24 13:21 Height 4 ft 7 in Weight 149 lb 2 oz BMI 34.7 BP 114/78 Blood Pressure Location Lt brachial Position Sitting Respiration 12 Pulse 105 H Pulse Source Pulse Oximeter Temp 99.1 F Temp Source Oral Pulse Oximetry (%) 97 Oxygen Delivery Method Room Air Intake Visit Reasons: headache, fever and body pain Intake Note: Headache, fever, body aches. sxs the past two days Material Scheduler Required: Yes Material Scheduler Language: Johnil Material Scheduler Name: Alicia [id number] Allergies No Known Allergies Allergy (Verified 07/05/24 13:11) Medication List - Last Reconciled 07/05/24 by Kori Caldwell PA-C albuterol sulfate 90 mcg/actuation (Ventolin HFA) 2 puffs inhalation Q6H PRN budesonide-formoterol 160-4.5 mcg/actuation 2 puffs inhalation BID cetirizine (Zyrtec) 10 mg PO DAILY desonide 0.05% 1 appl topical BID-QID PRN Tobacco use date assessed: 04/17/24 Dental Screening Dental Screen Date: 04/17/24 HPI headache, fever and body pain HPI Details History of Present Illness The patient is a 38-year-old female presenting with upper respiratory symptoms and asthma exacerbation. The onset of symptoms was the previous day, with the patient experiencing headaches, sinus congestion, nasal congestion, body aches and a sore throat. The patient reported feeling febrile with associated chills, though she could not confirm any fever measurement. The patient noted that there has been exposure to sick contacts with the flu. She states everyone in her house has the flu. The patient denied experiencing nausea or vomiting; however, she reported a significant reduction in appetite and fluid intake. Additionally, the patient reported the presence of cough producing yellow mucus and occasional wheezing. The patient?s history of asthma includes nocturnal wheezing and cough, which seem to have intensified concurrently with the current viral symptoms. She has not used her inhaler more frequently during this exacerbation. Previously, she has been on a maintenance inhaler that she has not regularly used. The patient denied any ear pain but reported some itchiness. To date, the patient has only taken Tylenol for symptomatic alleviation. Health Maintenance Social History Review of Systems - Head: Reports headache - Throat: Reports sore throat - Respiratory: Reports cough, wheezing, and chest discomfort - Gastrointestinal: Denies nausea or vomiting - General: Reports chills, denies firm confirmation of fever Physical Exam General: Well developed, well nourished, in no acute distress. Appears stated age. HEENT: nasal mucosa erythematous and edematous, sinus tenderness noted, oral mucosa wnl, no erythema or exudates of posterior oropharynx. TMs dome-shaped a small air-fluid levels bilaterally. No lymphadenopathy Cardiac: RRR, no murmurs Lungs: clear, equal breath sounds with slight wheezing noted when coughing Abdomen: soft, nontender, no CVA tenderness Extremities: no edema Neuro: alert, oriented x3, mood appropriate Plan - For the Viral Upper Respiratory Infection: I have decided not to initiate antibiotic therapy at this time. The patient is advised to maintain adequate hydration, rest, and utilize [id number] medications such as Tylenol or Motrin as needed. A COVID-19 and influenza swab will be performed to rule out viral pathogens. - For Asthma: The patient will be prescribed Tessalon Perles for cough management. Additionally, an increase in inhaler use, particularly the albuterol inhaler, is recommended as needed, especially with symptoms of shortness of breath. I have also advised to use her inhaled steroid as ordered. A nasal spray such as Flonase has been prescribed to manage any inflammation of the nasal passages. The patient has been informed to monitor symptoms closely and to seek further medical evaluation if there is any deterioration in her respiratory status or prolonged symptoms over the next several days. Intrepreter: Shilpazluis f [id number] [facility] Social History Housing: Apartment Patient Tobacco Use Status: Never used Tobacco Cognitive needs: No Hearing needs: No Vision needs: No Questionnaire Thrive Questionnaire Date Thrive assessed: 07/05/24 ARI-7 AMB Questionnaire ARI-7 Date ARI - 7 assessed: 04/17/24 Source: Developed by Drs. Jeremy Tristan, Kayla Toure, Bayron Manrique and colleagues, with an educational britt from [employer]. Physical exam (Primary Care) Vital Signs: Last Vital Signs Temp 99.1 F 07/05/24 13:21 Pulse 105 H 07/05/24 13:21 Resp 12 07/05/24 13:21 BP 114/78 07/05/24 13:21 Pulse Ox 97 07/05/24 13:21 Oxygen Delivery Method Room Air 07/05/24 13:21 BMI result Body Mass Index 34.7 Tobacco/Smoking Status: Tobacco use Status Tobacco use date assessed 04/17/24 07/05/24 13:10 Patient Tobacco Use Status Never used Tobacco 07/05/24 13:10 Thrive Assessment: Date of Thrive Assessment Date Thrive assessed 07/05/24 07/05/24 13:10 Coding Level of Care Code Est Pt Level 3 (61219) Diagnoses Viral URI with cough J06.9 Assessment & Plan Assessment & Plan (1) Viral URI with cough: Code(s): J06.9 - Acute upper respiratory infection, unspecified Category: Medical Plan . Orders: Orders SARS-CoV2/FLU/RSV Today J06.9 - Acute upper respiratory infection, unspecified, R09.89 - Other specified symptoms and signs involving the circulatory and respiratory systems Medications: New fluticasone propionate 50 mcg/actuation (Flonase Allergy Relief) administer into each nostril 1 spray intranasal BID 16 grams 0RF benzonatate 100 mg PO TID PRN 30 caps 0RF cough
[2024-07-05 13:21] VITALS: BP 114/78; PULSE 105; RESP 12; TEMP 37.3; O2SAT 97; BMI 34.7
--- OUTSIDE RECORDS SUMMARY | 2024-07-05 14:14 | XMS_ITS | Clinical Summary ---
Author Organization [facility] Address [address] [place] [address] Care Team Providers Care Dry Color Tester Name Role Phone Fang Huizar-Gabriele Primary Care Provider [phone] Source Comments PLEASE NOTE, if this patient is a minor, it may be UNLAWFUL to discuss sensitive information that is contained in these records (such as FAMILY PLANNING, MENTAL HEALTH or SUBSTANCE ABUSE) with the minor patient's parent or other person without the patient's specific authorization.[facility] Allergies No known active allergies Medications budesonide-formo teroL (SYMBICORT) 160-4.5 mcg/actuation inhalerIndicatio ns:Moderate persistent asthma without complication Inhale 1 Puff into the lungs 2 (two) times daily Rinse mouth after use. Strength: 160-4.5 mcg/actuat ion 10.2 g 11 4 Active ibuprofen 600 mg tabletIndication s:Viral upper respiratory tract infection Take 1 Tablet by mouth 4 (four) times daily as needed for pain 30 Tablet 2 5 Active ibuprofen 600 mg tabletIndication s:Viral upper respiratory tract infection Take 1 Tablet by mouth 4 (four) times daily as needed for pain 30 Tablet 2 4 025 Discontinued Active Problems Problem Noted Date Diagnosed Date Moderate persistent asthma without complication 06/02/2022 History of COVID-19:05/12/2021 05/15/2021 Immunizations Name Administration Dates Next Due Flu, Cell Culture based, Pre servative Free, 6m+, Flucelvax 04/22/2018 Flu, Preservative Free 04/27/2022,04/14/2019 TDAP 04/14/2019 Family History Medical History Relation Name Comments No Known Problems Brother No Known Problems Father No Known Problems Mother No Known Problems Sister Relation Name Status Comments Brother Alive Father Alive Mother Alive Sister Alive Social History Tobacco Use Types Packs/Day Years Used Date Smoking Tobacco: Never Passive Smoke Exposure: Never Smokeless Tobacco: Never Tobacco Cessation:Counseling Given: Not Answered Alcohol Use Standard Drinks/Week Comments No 0 (1 standard drink = 0.6 oz pur e alcohol) Social Connections Answer Date Recorded Connectedness 0 01/30/2024 Financial Resource Strain Answer Date R ecorded Financial Resource Strain 0 2018 Stress Answer Date Recorded Stress 0 01/16/2019 Physical Activity Answer Date Recorded Physical Activity 0 01/16/2019 Food Insecurity Answer Date Recorded Food 0 02/17/2024 Transportation Needs Answer Date Record ed Transportation 0 01/16/2019 Housing Stability Answer Date Recorded Housing 0 01/16/2019 Safety and Environment Answer Date Jordin rded Safety 1 08/19/2023 Utilities Answer Date Recorded Utilities 0 01/16/2019 Employment Answer Date Recorded Employment 0 01/16/2019 Comments No Sex and Gender Information Value Date Recorded Sex Assigned at Female 09/21/2018 7:58 AM PDT Legal Sex Female 7:14 AM PDT Gender Identity Female 09/21/2018 7:58 AM PDT Sexual Orientation Straight 09/21/2018 7: 58 AM PDT Last Filed Vital Signs Vital Sign Reading Time Taken Comments Blood Pressure 116/70 01/03/2024 2:04 PM EDT Pulse 72 01/03/2024 2:04 PM EDT Temperature 36.5 ??C (97.7 ??F) 08/19/2023 1:17 PM ED T Respiratory Rate 16 08/19/2023 1:17 PM EDT Oxygen Saturation 98% 08/18/2021 1:56 PM EDT Inhaled Oxygen Concentration - - Weight 68.5 kg (151 lb) 08/19/2023 1:17 PM EDT Height 144.8 cm (4' 9 ) 08/19/2023 1:17 PM EDT Body Mass Index 32.68 08/19/2023 1:17 PM EDT Plan of Treatment Health Maintenance Due Date Last Done Comments HPV Screening 1986 Imm-Hepatitis B (1 of 3 - 19 + 3-dose series) 2005 Imm-Pneumococcal (1 of 2 - PCV) 2005 [id number]-05 (1 - 2023- season) 2024 Imm-Influenza (#1) 2024 04/27/2022, 1 06/14/2018, 04/22/2018 Alcohol and Drug Screen 05/24/2024 08/19/2023, 09/21 Depression Annual Screen 05/24/2024 08/19/2023 Pap Smear 06/17/2024 06/17/2021 Annual Preventive Care Visit 08/18/2024 08/19/2023, 04/14/2019 Relationship Safety Screening/Counseling 08/18/2024 08/19/2023, 04/14/2019 Tobacco Screening 08/18/2024 08/19/2023 Dental BW 12/23/2024 12/22/2023 Dental Examination 12/23/2024 12/22/2023 Dental Perio Charting 12/23/2024 12/22/2023 Hypertension Screening (#1) 01/02/2025 Dental Prophy 01/04/2025 01/03/2024 Cervical Cancer Screening 06/17/2026 Pap + HPV 06/17/2026 06/17/2021 Diabetes Screening 08/18/2026 08/19/2023, 08/19/2023 Lipid Screening 08/18/2026 08/19/2023 Dental FMX/Pano 12/23/2028 12/22/2023 Imm-DTaP/Tdap/Td (2 - Td or Tdap) 04/14/2029 019 HIV Screening Completed 08/19/2023 Hepatitis C Screening Completed 08/19/2023 Cervical Ablation/Cold-Knife Conization Discontinued Cervical Cryotherapy Discontinued Colposcopy Discontinued Endometrial Biopsy Discontinued Excision/Leep Discontinued HPV Genotyping Discontinued Vaginal Pap Discontinued Vulvoscopy Discontinued Procedures Procedure Name Priority Date/Time Associated Diagnosis Comments Full PROPHYLAXIS - ADULT Routine 01/03/2024 1:40 PM EDT Encounter for dental examination and cleaning without abnormal findings Full INTRAORAL - COMP SERIES OF RADIOGRAPHIC IMAGES Routine 12/22/2023 3:00 PM EDT Chronic gingivitis, plaque induced Full COMP ORAL EVALUATION - NEW/ESTABLISHED PATIENT Routine 12/22/2023 3:00 PM EDT Chronic gingivitis, plaque induced HIV 1/2 AG & AB W/RFLX (4TH GEN) Routine 08/19/2023 2:07 PM EDT Routine general medical examination at a health care facility HEPATITIS C AB W/RFLX HCV RNA, QT, RT PCR Routine 08/19/2023 2:07 PM EDT Routine general medical examination at a health care facility COMPREHENSIVE METABOLIC PANEL Routine 08/19/2023 2:07 PM EDT Routine general medical examination at a health care facility LIPID PANEL Routine 08/19/2023 2:07 PM EDT Routine general medical examination at a health care facility THINPREP PAP & HPV MRNA E6/E7 RFLX HPV 16,18/[address]/NG Routine 06/17/2021 2:45 PM EST Encounter for IUD removal Well woman exam with routine gynecological exam from Last 3 Months or Most Recently Relevant to Health Maintenance Results * HEPATITIS C AB W/RFLX HCV RNA, QT, RT PCR (08/19/2023 2:07 PM EDT) HEPATITIS C ANTIBODY NON-REACT LUISITO NON-REACT LUISITO [facility] Comment: HCV antibody was non-reactive. There is no laboratory evidence of HCV infection. In most cases, no further action is required. However, if recent HCV exposure is suspected, a test for HCV RNA (test code 29134) is suggested. For additional information please refer to http://education.[employer].Buzzmove/faq/JWW46f9 (This link is being provided for informational/ educational purposes only.) Blood Blood / Unknown 08/19/2023 2 :07 PM EDT 08/19/2023 2:08 PM EDT Narrative [facility] - 08/20/2023 10:21 AM EDT FASTING:UNKNOWN us Fang Huizar [facility] - BLOOD DRAW Edited R esult - Final [facility] [address] [address], [facility] [address] [place] [address] * HIV 1/2 AG & AB W/RFLX (4TH GEN) (08/19/2023 2:07 PM EDT) HIV AG/AB, 4TH GEN NON-REAC TIVE NON-REAC TIVE [facility] Comment: HIV-1 antigen and HIV-1/HIV-2 antibodies were not detected. There is no laboratory evidence of HIV infection. PLEASE NOTE: This information has been disclosed to you from records whose confidentiality may be protected by state law. ??If your state requires such protection, then the state law prohibits you from making any further disclosure of the information without the specific written consent of the person to whom it pertains, or as otherwise permitted by law. A general authorization for the release of medical or other information is NOT sufficient for this purpose. ?? For additional information please refer to http://education.Shareablee/faq/LFU390 (This link is being provided for informational/ educational purposes only.) The performance of this assay has not been clinically validated in patients less than 2 years old. Blood Blood / Unknown 08/19/2023 2 :07 PM EDT 08/19/2023 2:08 PM EDT Narrative [facility] - 08/20/2023 10:21 AM EDT FASTING:UNKNOWN Fang Huizar [facility] - BLOOD DRAW Final Re sult [facility] [address] [address], [facility] [address] [place] [address] * (ABNORMAL) LIPID PANEL (08/19/2023 2:07 PM EDT) Pathologist [facility] CHOLESTEROL, TOTAL 211(H) <200 mg/dL [facility] HDL CHOLESTEROL 56 > OR = 50 mg/dL [facility] TRIGLYCERIDES 110 <150 mg/dL [facility] LDL-CHOLESTEROL 133(H) 99 mg/dL (calc) [facility] Comment: Reference range: <100 Desirable range <100 mg/dL for primary prevention; ?? <70 mg/dL for patients with CHD or diabetic patients with > or = 2 CHD risk factors. LDL-C is now calculated using the Sixto calculation, which is a validated novel method providing better accuracy than the Friedewald equation in the estimation of LDL-C. Ross SS et al. RODDY. 2013;310(19): 8905-7541 (http://education.[employer] capital online science and technology/faq/ZTP345) CHOL/HDLC RATIO 3.8 <5.0 (calc) [facility] NON-HDL CHOLESTEROL 155(H) <130 mg/dL (calc) [facility] Comment: For patients with diabetes plus 1 major ASCVD risk factor, treating to a non-HDL-C goal of <100 mg/dL (LDL-C of <70 mg/dL) is considered a therapeutic option. Blood Blood / Unknown 08/19/2023 2 :07 PM EDT 08/19/2023 2:08 PM EDT Narrative [facility] - 08/20/2023 10:21 AM EDT FASTING:UNKNOWN Fang Huizar [facility] - BLOOD DRAW Final Re sult [facility] [address] [place] [address], [facility] [address] [place] [id number] * COMPREHENSIVE METABOLIC PANEL (08/19/2023 2:07 PM EDT) [facility] GLUCOSE 87 65 - 99 mg/dL [facility] Comment: ?Fasting reference interval UREA NITROGEN (BUN) 15 7 - 25 mg/dL [facility] CREATININE (blood) 0.65 0.50 - 0.97 mg/dL [facility] EGFR 117 > OR = 60 mL/min/1. 73m2 [facility] BUN/CREATININE RATIO SEE NOTE: [facility] Comment: ?? Not Reported: BUN and Creatinine are within ?? reference range. ? SODIUM 138 135 - 146 mmol/L [facility] POTASSIUM 4.3 3.5 - 5.3 mmol/L [facility] CHLORIDE 105 98 - 110 mmol/L [facility] CARBON DIOXIDE 26 20 - 32 mmol/L [facility] CALCIUM 8.9 8.6 - 10.2 mg/dL [facility] PROTEIN, TOTAL 6.9 6.1 - 8.1 g/dL [facility] ALBUMIN 4.3 3.6 - 5.1 g/dL [facility] GLOBULIN 2.6 1.9 - 3.7 g/dL (calc) [facility] ALBUMIN/GLOBULI N RATIO 1.7 1.0 - 2.5 (calc) [facility] BILIRUBIN, TOTAL 0.4 0.2 - 1.2 mg/dL [facility] ALKALINE PHOSPHATASE 38 31 - 125 U/L [facility] AST 12 10 - 30 U/L [facility] ALT 11 6 - 29 U/L [facility] Blood Blood / Unknown 08/19/2023 2 :07 PM EDT 08/19/2023 2:08 PM EDT Narrative [facility] - 08/20/2023 10:21 AM EDT FASTING:UNKNOWN Fang Huizar [facility] - BLOOD DRAW Edited R esult - Final [facility] [address] [address], [facility] [address] [address] * THINPREP PAP & HPV MRNA E6/E7 RFLX HPV 16,18/[address]/NG (06/17/2021 2:45 PM EST) CLINICAL INFORMATION See Note [facility] Comment:Routine exam LMP See Note [facility] Comment:[id number] PREV. PAP See Note [facility] Comment:NONE GIVEN PREV. BX See Note [facility] Comment:NONE GIVEN SOURCE See Note [facility] Comment:Cervix STATEMENT OF ADEQUACY See Note [facility] [facility] Comment: Satisfactory for evaluation. Endocervical/transformation zone component present. INTERPRETATION/RESU LT See Note [facility] Comment:Negative for intraep ithelial lesion or malignancy. ELECTRONICS DESIGN ENGINEER See Note [facility] Comment: RMM, CT(ASCP) CT screening location: [address] ??[address] COMMENT [facility] HPV MRNA E6/E7 Not Detected Not Detected [facility] Comment: Methodology: Communication Lecturer-Mediated Amplification This assay detects E6/E7 viral messenger RNA (mRNA) from 14 high-risk HPV types (16,18,31,33,35,39,45,51,52,56,58,59,66,68). The analytical performance characteristics of this assay have been determined by [employer]. The modifications have not been cleared or approved by the FDA. This assay has been validated pursuant to the CLIA regulations and is used for clinical purposes. For additional information, please refer to http://[employer]inance UK.Shareablee/faq/BAL130r1 (This link if provided for information/ educational purposes only.) CHLAMYDIA TRACHOMATIS RNA, TMA NOT DETECTED NOT DETECTED [facility] NEISSERIA GONORRHOEAE RNA, TMA NOT DETECTED NOT DETECTED [facility] COMMENT [facility] CYTOLOGY Cervix uteri structure / Unknown 06/17/2021 2:45 PM EST 06/18/2021 6:10 AM EST Narrative [facility] - 06/19/2021 8:40 AM EST EXPLANATORY NOTE: The Pap is a screening test for cervical cancer. It is not a diagnostic test and is subject to false negative and false positive results. It is most reliable when a satisfactory sample, regularly obtained, is submitted with relevant clinical findings and history, and when the Pap result is evaluated along with historic and current clinical information. The analytical performance characteristics of this assay, when used to test SurePath(TM) specimens have been determined by [employer]. The modifications have not been cleared or approved by the FDA. This assay has been validated pursuant to the CLIA regulations and is used for clinical purposes. For additional information, please refer to https://education.Shareablee/faq/ZHX802 (This link is being provided for information/ educational purposes only.) [facility] - NO BLOOD DRAW Final R esult [facility] [address] [facility] [address] [place] [address], [facility] [address] [address] from Last 3 Months or Most Recently Relevant to Health Maintenance [place]ENTAL Care Teams Dry Color Tester Relationship Specialty Start Date End Date Fang Huizar FNP-C [facility] [place] [address] PCP - General Internal Medicine 06/02/23
--- OUTSIDE RECORDS SUMMARY | 2024-07-05 14:14 | XMS_ITS | Encounter Summary ---
Author Organization [facility] Address [address] [place] [address] Care Team Providers Care Coremaker Supervisor Name Role Phone Fang Huizar-Gabriele Primary Care Provider [phone] Encounter Details Date Type Department Care Team (Late st Contact Info) Description 05/09/2019 Interim Notes [address] [phone] [address] [address] Social History Tobacco Use Types Packs/Day Years Used Date Smoking Tobacco: Never Smokeless Tobacco: Never Alcohol Use Standard Drinks/Week Comments No 0 (1 standard drink = 0.6 oz pur e alcohol) Social Connections Answer Date Recorded Social Connections and Isolation 0 01/16/2019 Financial Resource Strain Answer Date R ecorded Financial Resource Strain 0 2018 Stress Answer Date Recorded Stress 0 01/16/2019 Physical Activity Answer Date Recorded Physical Activity 0 01/16/2019 Food Insecurity Answer Date Recorded Food 0 01/16/2019 Transportation Needs Answer Date Record ed Transportation 0 01/16/2019 Housing Stability Answer Date Recorded Housing 0 01/16/2019 Safety and Environment Answer Date Jordin rded Safety 1 04/14/2019 Utilities Answer Date Recorded Utilities 0 01/16/2019 Employment Answer Date Recorded Employment 0 01/16/2019 Comments No Sex and Gender Information Value Date Recorded Sex Assigned at Female 09/21/2018 7:58 AM PDT Legal Sex Female 7:14 AM PDT Gender Identity Female 09/21/2018 7:58 AM PDT Sexual Orientation Straight 09/21/2018 7: 58 AM PDT documented as of this encounter Plan of Treatment Not on file documented as of this encounter Visit Diagnoses Not on filedocumented in this encounter Additional Health Concerns Infection Onset Date Last Indicated Resolved Time COVID-19 Comment:NEGATIVE 06-04-21 06/04/2021 06/04/2021 06/04/2021 8:44 AM PST Assessment Noted Time PHQ-9 Depression Total Score: 8 09/22/19 10:57 AM PDT documented as of this encounter Care Teams Coremaker Supervisor Relationship Specialty Start Date End Date Fang Huizar FNP-C [address] [place] [address] PCP - General Internal Medicine 06/02/23 documented as of this encounter
--- OUTSIDE RECORDS SUMMARY | 2024-07-05 14:14 | XMS_ITS | Clinical Summary ---
Author Organization [facility] Address [address] [facility] [address] [place] [address] Care Team Providers Care Survey And Mapping Technician Name Role Phone Unavailable Primary Care Provider Unavailabl e Allergies No known active allergies Medications No known medications Social History Tobacco Use Types Packs/Day Years Used Date Smoking Tobacco: Never Smokeless Tobacco: Never Tobacco Cessation:Counseling Given: Not Answered Comments Unknown Sex and Gender Information Value Date Recorded Sex Assigned at Female 03/23/2022 10:30 AM EDT Legal Sex Female 10:30 AM EDT Gender Identity Female 03/23/2022 10:30 AM EDT Sexual Orientation Choose not to disclose 2021 10:30 AM EDT Last Filed Vital Signs Vital Sign Reading Time Taken Comments Blood Pressure 135/78 06/03/2023 10:17 AM EST Pulse 78 06/03/2023 10:17 AM EST Temperature - - Respiratory Rate - - Oxygen Saturation - - Inhaled Oxygen Concentration - - Weight - - Height - - Body Mass Index - - Plan of Treatment Health Maintenance Due Date Last Done Comments Depression Screening 1986 SDOH Screening 1986 Alcohol/Substance Use Screening 1998 Family Planning (PISQ) 2001 Hepatitis C Screening 2004 Hepatitis B Vaccines (1 of 3 - 19+ 3-dose series) 2005 Pneumococcal Vaccine: Pediatrics (0 to 5 Years) and At-Risk Patients (6 to 49) Years) (1 of 2 - PCV) 2005 Pap Smear 09/23/2007 Cervical Cancer Screening 2016 HPV/Cotest 2016 Dental X-Ray: Bitewings 09/10/2017 09/09/2016 Dental X-Ray: Full Mouth 09/11/2019 09/09/2016 Dental Oral Exam 12/03/2023 06/03/2023, 05/15/2016 Dental Prophylaxis 12/03/2023 06/03/2023, 05/15/2016 COVID-19 Vaccine (1 - 2023-2 5 season) 2024 Influenza Vaccine (#1) 2024 , 04/14/2019, 04/22/2018 Tobacco Screening 06/03/2024 06/03/2023 DTaP/Tdap/Td Vaccines (2 - T d or Tdap) 04/14/2029 04/14/2019 Zoster Vaccines (1 of 2) 2036 RSV Patients and Patients Aged 60 years or older (1 - 1-dose 75+ series) 2061 HIV Screening Completed 08/19/2023 HIB Vaccines Aged Out No longer eligi ble based on patient's age to complete this topic HPV Vaccines Aged Out No longer eligi ble based on patient's age to complete this topic Hepatitis A Vaccines Aged Out No long er eligible based on patient's age to complete this topic IPV Vaccines Aged Out No longer eligi ble based on patient's age to complete this topic Meningococcal Vaccine Aged Out No david cuca eligible based on patient's age to complete this topic RSV under 20 months Aged Out No longe r eligible based on patient's age to complete this topic Rotavirus Vaccines Aged Out No longer eligible based on patient's age to complete this topic Procedures Procedure Name Priority Date/Time Associated Diagnosis Comments PROPHYLAXIS - ADULT Routine 06/03/2023 1 0:00 AM EST PERIODIC ORAL EVALUATION - ESTABLISHED PATIENT Routine 06/03/2023 10:00 AM EST DIAGNOSTIC - DIAGNOSTIC IMAGING - INTRAORAL - COMPREHENSIVE SERIES OF RADIOGRAPHIC IMAGES Routine 09/09/2016 12:00 AM EDT from Last 3 Months or Most Recently Relevant to Health Maintenance Insurance [facility]AL-[facility] MEDICAID STAND ADULT DENTAL[place] MED[place] ADULT DENTAL - [facility] FULL (MEDICAID)
== END 2024-07-05 14:17 | disposition home or self-care (01) ==
PROVIDERS: PCP Nurse Practitioner Family; Visit Provider Physician Assistant
DX: J06.9 Acute upper respiratory infection, unspecified (principal)

== ENCOUNTER 2024-07-05 12:53 | Outpatient (REF) | payer OTHER, SELFPAY ==
--- OUTSIDE RECORDS SUMMARY | 2024-07-05 17:58 | XMS_ITS | Encounter Summary ---
Author Organization [facility] Address [address] [place] [address] Care Team Providers Care Tire Service Technician Name Role Phone Fang Huizar-Gabriele Primary Care Provider [phone] Encounter Details Date Type Department Care Team (Late st Contact Info) Description 05/09/2019 Interim Notes [address] [phone] [address] Social History Tobacco Use Types Packs/Day Years [...] documented as of this encounter Care Teams Tire Service Technician Relationship Specialty Start Date End Date Fang Huizar FNP-C [address] [place] [address] PCP - General Internal Medicine 06/02/23 documented as of this encounter
--- OUTSIDE RECORDS SUMMARY | 2024-07-05 17:58 | XMS_ITS | Clinical Summary ---
Author Organization [facility] Address [address] [place] [address] Care Team Providers Care Blocker Polishing Name Role Phone Fang Huizar-Gabriele Primary Care Provider [phone] Source Comments PLEASE NOTE, if this patient [...] Imm-Pneumococcal (1 of 2 - PCV) 2005 [id number] (1 - 2023- season) 2024 Imm-Influenza (#1) [...] HEPATITIS C ANTIBODY NON-REACT LUISITO NON-REACT LUISITO [facility] Comment: HCV antibody was non-reactive. There is no laboratory evidence of HCV infection. In most cases, no further action is required. However, if recent HCV exposure is suspected, a test for HCV RNA (test code 23288) is suggested. For additional information please refer to http://education.SpumeNews.demandmart/faq/NSK81n1 (This link is being provided for informational/ educational purposes only.) Blood Blood / Unknown 08/19/2023 2 :07 PM EDT 08/19/2023 2:08 PM EDT Narrative [facility] - 08/20/2023 10:21 AM EDT FASTING:UNKNOWN us Fang Huizar SHADOWGRAPH SCALE OPERATOR-C LAB - BLOOD DRAW Edited R esult - Final [facility] [address] [address], [facility] [address] [place] [address] * HIV 1/2 AG & AB W/RFLX (4TH GEN) (08/19/2023 2:07 PM EDT) HIV AG/AB, 4TH GEN NON-REAC TIVE NON-REAC TIVE [facility] Comment: HIV-1 antigen and HIV-1/HIV-2 antibodies were [...] ?? For additional information please refer to http://education.Total Attorneys/faq/VIR777 (This link is being provided for informational/ educational purposes only.) The performance of this assay has not been clinically validated in patients less than 2 years old. Blood Blood / Unknown 08/19/2023 2 :07 PM EDT 08/19/2023 2:08 PM EDT Narrative [facility] - 08/20/2023 10:21 AM EDT FASTING:UNKNOWN Fang Huizar SHADOWGRAPH SCALE OPERATOR-C LAB - BLOOD DRAW Final Re sult [facility] [address] [address], [facility] [address] [place] [address] * (ABNORMAL) LIPID PANEL (08/19/2023 2:07 PM EDT) Pathologist [facility] CHOLESTEROL, TOTAL 211(H) <200 mg/dL [facility] HDL CHOLESTEROL 56 > OR = 50 mg/dL [facility] TRIGLYCERIDES 110 <150 mg/dL [facility] LDL-CHOLESTEROL 133(H) 99 mg/dL (calc) [facility] Comment: Reference range: <100 Desirable range <100 mg/dL for primary prevention; ?? <70 mg/dL for patients with CHD or diabetic patients with > or = 2 CHD risk factors. LDL-C is now calculated using the Sixto calculation, which is a validated novel method providing better accuracy than the Friedewald equation in the estimation of LDL-C. Ross SS et al. RODDY. 2013;310(19): 8351-0422 (http://education.Bioenvision/faq/BGC151) CHOL/HDLC RATIO 3.8 <5.0 (calc) [facility] NON-HDL CHOLESTEROL 155(H) <130 mg/dL (calc) [facility] Comment: For patients with diabetes plus 1 major ASCVD risk factor, treating to a non-HDL-C goal of <100 mg/dL (LDL-C of <70 mg/dL) is considered a therapeutic option. Blood Blood / Unknown 08/19/2023 2 :07 PM EDT 08/19/2023 2:08 PM EDT Narrative [facility] - 08/20/2023 10:21 AM EDT FASTING:UNKNOWN Fang Huizar SHADOWGRAPH SCALE OPERATOR-C LAB - BLOOD DRAW Final Re sult [facility] [address] [place] [id number], [facility] [address] [place] [phone] * COMPREHENSIVE METABOLIC PANEL (08/19/2023 2:07 PM EDT) [facility] GLUCOSE 87 65 - 99 mg/dL [facility] Comment: ?Fasting reference interval UREA NITROGEN (BUN) 15 7 - 25 mg/dL [facility] CREATININE (blood) 0.65 0.50 - 0.97 mg/dL [facility] EGFR 117 > OR = 60 mL/min/1. 73m2 [facility] BUN/CREATININE RATIO SEE NOTE: [facility] Comment: ?? Not Reported: BUN and Creatinine are within ?? reference range. ? SODIUM 138 135 - 146 mmol/L [facility] POTASSIUM 4.3 3.5 - 5.3 mmol/L [facility] CHLORIDE 105 98 - 110 mmol/L [facility] CARBON DIOXIDE 26 20 - 32 mmol/L [facility] CALCIUM 8.9 8.6 - 10.2 mg/dL [facility] PROTEIN, TOTAL 6.9 6.1 - 8.1 g/dL [facility] ALBUMIN 4.3 3.6 - 5.1 g/dL [facility] GLOBULIN 2.6 1.9 - 3.7 g/dL (calc) [facility] ALBUMIN/GLOBULI N RATIO 1.7 1.0 - 2.5 (calc) [facility] BILIRUBIN, TOTAL 0.4 0.2 - 1.2 mg/dL [facility] ALKALINE PHOSPHATASE 38 31 - 125 U/L [facility] AST 12 10 - 30 U/L [facility] ALT 11 6 - 29 U/L [facility] Blood Blood / Unknown 08/19/2023 2 :07 PM EDT 08/19/2023 2:08 PM EDT Narrative [facility] - 08/20/2023 10:21 AM EDT FASTING:UNKNOWN Fang Huizar SHADOWGRAPH SCALE OPERATOR-C LAB - BLOOD DRAW Edited R esult - Final [facility] [address] [address], [facility] [address] [address] * THINPREP PAP & HPV MRNA E6/E7 RFLX HPV 16,18/[address]/NG (06/17/2021 2:45 PM EST) CLINICAL INFORMATION See Note [facility] Comment:Routine exam LMP See Note [facility] Comment:[id number] PREV. PAP See Note [facility] Comment:NONE GIVEN PREV. BX See Note [facility] Comment:NONE GIVEN SOURCE See Note [facility] Comment:Cervix STATEMENT OF ADEQUACY See Note [facility] Comment: Satisfactory for evaluation. Endocervical/transformation zone component present. INTERPRETATION/RESU LT See Note [facility] Comment:Negative for intraep ithelial lesion or malignancy. COTTON PRESSER See Note [facility] [employer] [facility] Comment: RMM, CT(ASCP) CT screening location: [address] ??[address] COMMENT [facility] HPV MRNA E6/E7 Not Detected Not Detected [facility] Comment: Methodology: Acid Conditioning Worker-Mediated Amplification This assay detects E6/E7 viral messenger RNA (mRNA) from 14 high-risk HPV types (16,18,31,33,35,39,45,51,52,56,58,59,66,68). The analytical performance characteristics of this assay have been determined by [employer]. The modifications have not been cleared or approved by the FDA. This assay has been validated pursuant to the CLIA regulations and is used for clinical purposes. For additional information, please refer to http://Medprex.Total Attorneys/faq/ROU699u5 (This link if provided for information/ educational purposes only.) CHLAMYDIA TRACHOMATIS RNA, TMA NOT DETECTED NOT DETECTED [facility] NEISSERIA GONORRHOEAE RNA, TMA NOT DETECTED NOT DETECTED [facility] COMMENT [facility] CYTOLOGY Cervix uteri structure / Unknown 06/17/2021 2:45 PM EST 06/18/2021 6:10 AM EST Narrative [facility] - 06/19/2021 8:40 AM EST EXPLANATORY NOTE: [...] test SurePath(TM) specimens have been determined by [employer]. The modifications have not been cleared or approved by the FDA. This assay has been validated pursuant to the CLIA regulations and is used for clinical purposes. For additional information, please refer to https://education.Total Attorneys/faq/WVC168 (This link is being provided for information/ educational purposes only.) Francia COLL[facility] LAB - NO BLOOD DRAW Final R esult [facility] [address] [facility] [address] [place] [address], [facility] [address] [address] from Last 3 Months or Most Recently Relevant to Health Maintenance [place]ENT[place] Care Teams Blocker Polishing Relationship Specialty Start Date End Date Fang Huizar FNP-C [facility] [place] [address] PCP - General Internal Medicine 06/02/23
[2024-07-05 18:46] LABS: Influenza A PCR NEGATIVE (Negative); Influenza B PCR NEGATIVE (Negative); Resp Syncy Virus RNA Qual PCR NEGATIVE (Negative); SARS COV2 PCR INHOUSE NEGATIVE (Negative)
== END 2024-07-05 12:54 | disposition home or self-care (01) ==
LOC: HO.LNP 12:53
PROVIDERS: PCP Nurse Practitioner Family; Visit Provider Physician Assistant
DX: J06.9 Acute upper respiratory infection, unspecified (principal); R09.89 Other specified symptoms and signs involving the circulatory and respiratory systems
CPT/HCPCS: 0241U; 99212

== ENCOUNTER 2024-08-02 08:55 | Outpatient (AMB) | payer OTHER, SELFPAY ==
--- NOTE | 2024-08-02 09:07 | A.OFFPC_ITS ---
Vital Signs 08/02/24 09:20 Height 4 ft 7 in Weight 153 lb 6 oz BMI 35.6 BP 112/70 Blood Pressure Location Rt brachial Position Sitting Respiration 12 Pulse 71 Pulse Source Pulse Oximeter Temp 96.9 F Temp Source Oral Pulse Oximetry (%) 98 Oxygen Delivery Method Room Air Intake Visit Reasons: Med F/U Intake Note: med follow up Python Consultant Required: Yes Python Consultant Language: Tamil Python Consultant Name: [id number] Allergies No Known Allergies Allergy (Verified 08/02/24 09:34) Medication List - Last Reconciled 08/02/24 by Lnida Boogie, TUBING OILER- albuterol sulfate 90 mcg/actuation (Ventolin HFA) 2 puffs inhalation Q6H PRN benzonatate 100 mg PO TID PRN budesonide-formoterol 160-4.5 mcg/actuation 2 puffs inhalation BID cetirizine (Zyrtec) 10 mg PO DAILY desonide 0.05% 1 appl topical BID-QID PRN fluticasone propionate 50 mcg/actuation (Flonase Allergy Relief) 1 spray intranasal BID Tobacco use date assessed: 08/02/24 Dental Screening Dental Screen Date: 08/02/24 Did you have a dental visit in the last 12 months?: Yes Did you have a dental problem in the last 6 months where you did not have access to dental care?: No Was dental information given to patient?: Patient has dentist HPI HPI Comments History of Present Illness Details Python Consultant [id number] 38-year-old female presenting with eczem a, obesity, asthma and allergic rhinitis Surgery: None Health Maintenance Tdap 2022 Flu 03/2024 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 Previously, the patient was prescribed Tessalon for another illness and experienced full recovery. - Reports new onset nasal congestion and runny nose that began on the day of the visit. Attempts to obtain previously prescribed nasal spray (flonase) were unsuccessful due to pharmacy issues. - Acneiform eruptions with a one-month h istory. The patient has applied emollients w/o relief. No similar symptoms within the family. The areas are on h er face and itchy. Physical Exam General: Well developed, well nourished, in no acute distress. Appears stated age. Head: Normocephalic, atraumatic. Eyes: Pupils are equal, round and reactive to light and accommodation. Conjunctivae are clear. Vision grossly normal. TM intact and clear bilat Nares patent, no sinus tenderness Pharynx WNL Lungs: Clear to auscultation bilaterally. No rales, rhonchi or wheeze noted. Good air flow in all valdez. Heart: Regular rate and rhythm. No murmurs, click, rubs or gallops are noted. Skin: acneform pustules on bilat cheeks Discussion Notes During the visit, we discussed the management of the patient's asthma, including the current use of budesonide/formoterol inhaler and its success in symptom control. We addressed the recent nasal congestion and difficulties obtaining nasal spray from the pharmacy, with plans to provide a prescription. We also discussed the recent onset of acneiform eruptions and the use of topical antibiotics for treatment. . Necessary precautions were provided for follow-up in case symptoms persist or worsen, and a printed prescription was offered to avoid further delays at the pharmacy. Assessment and Plan 1. Asthma: The condition is well-managed with the current use of budesonide/formoterol inhaler, which I will continue to prescribe. 2. Nasal Congestion: Prescribe nasal spr ay to address symptoms potentially link ed to allergies or residual inflammation. 3. Acneiform Eruptions: Initiate treatme nt with a topical antibiotic to manage and reduce lesions. Paper prescriptions were printed and handed to her at the time of the visit. Intrepeter also provided edu about timing of med diamond picker, refills and potential lack of insurance coverage and need to buy OTC (ex: flonase). Patient Instructions - Continue using budesonide/formoterol i nhaler as prescribed. - Apply nasal spray each morning and curt rosario as directed. - Use topical antibiotic cream on acneif orm eruptions at bedtime. - Return for follow-up if symptoms worse n or persist otherwise return as scheduled. Consent Patient was informed and verbally consented to the use of an ambient scribe for clinic note documentation during this visit. Total time spent caring for the patient today was 30 minutes. This includes time spent before the visit reviewing the chart, time spent during the visit, and time spent after the visit on documentation, reviewing laboratory results, diagnostic imaging, medications, performing a medically necessary evaluation, counseling on diagnoses, care coordination, ordering appropriate tests, ordering appropriate medications, review of tests performed by other providers, reporting test results with the patient, communication with other healthcare providers. [facility] Social History Housing: Apartment Patient Tobacco Use Status: Never used Tobacco Cognitive needs: No Hearing needs: No Vision needs: No Questionnaire PHQ-9 Over the last 2 weeks, how often have you been bothered by any of the following problems? 1. Little interest or pleasure in doing things: not at all 2. Feeling down, depressed, or hopeless: not at all 3. Trouble falling or staying asleep, or sleeping too much: not at all 4. Feeling tired or having little energy: not at all 5. Poor appetite or overeating: not at all 6. Feeling bad about yourself - or that you are a failure or have let yourself or your family down: not at all 7. Trouble concentrating on things, such as reading the newspaper or watching television: not at all 8. Moving or speaking so slowly that other people could have noticed. Or the opposite - being so fidgety or restless that you have been moving around a lot more than usual: not at all 9. Thoughts that you would be better off or of hurting yourself in some way: not at all Total score: 0 Depression Screening Interpretation: Negative Depression Screening Done: Yes 23058 - PHQ-9 Billing: Yes Source: Developed by Drs. Jeremy Tristan, Kayla Toure, Bayron Manrique and colleagues, with an educational britt from [employer]. Thrive Questionnaire Date Thrive assessed: 08/02/24 I am a: Patient What is your living situation today?: I have a steady place to live Within the past 12 months, did the food you bought not last and you didn't have the money to get more?: Never true Within the past 12 months, did you worry whether your food would run out before you got money to buy more?: Never true Do you have trouble paying for medicines?: No Do you have trouble getting transportation to medical appointments?: No Do you have trouble paying your heating and electricity bill?: No Do you have trouble taking care of your child, family member or friend?: No Do you have trouble with day-to-day activities such as bathing, preparing meals, shopping, managing finances, etc.?: No Are you currently unemployed and looking for a job?: No Are you interested in more education?: No THRIVE Score: 0 AUDIT C Alcohol Use Questionnaire (AUDIT-C) 1. How often do you have a drink containing alcohol?: Never 2. How many drinks containing alcohol do you have on a typical day when you are drinking?: 1 or 2 3. How often do you have six or more drinks on one occasion?: Never Total Score: 0 Score Reviewed/Action Taken: Yes ARI-7 AMB Questionnaire ARI-7 Date ARI - 7 assessed: 08/02/24 Feeling nervous, anxious, or on edge: 0 = Not at all Not being able to stop or control worryin = Not at all Worrying too much about different things: 0 = Not at all Trouble relaxin = Not at all Being so restless that it is hard to sit still: 0 = Not at all Becoming easily annoyed or irritable: 0 = Not at all Feeling afraid as if something awful might happen: 0 = Not at all Total ARI-7 score (0-4 normal; 5-9 mild; 10-14 moderate; 15-21 severe): 0 Source: Developed by Drs. Jeremy Tristan, Kayla Toure, Bayron Manrique and colleagues, with an educational britt from [employer]. ARI-7 Assessment Billing ARI-7 Assessment Tool: ARI-7 Assessment 54902 ACT Questionnaire In the past 4 weeks, how much of the time did your asthma keep you from getting as much done at work, school or at home?: None of the time During the past 4 weeks, how often have you had shortness of breath?: Not at all During the past 4 weeks, how often did your asthma symptoms wake you up at night or earlier than usual in the morning?: Not at all During the past 4 weeks, how often have you had to use your rescue inhaler or nebulizer medication?: Not at all How would you rate your asthma control during the past 4 weeks?: Completely controlled ACT Interpretation: Negative Score: 25 Physical exam (Primary Care) Vital Signs: Last Vital Signs Temp 96.9 F 08/02/24 09:20 Pulse 71 08/02/24 09:20 Resp 12 08/02/24 09:20 BP 112/70 08/02/24 09:20 Pulse Ox 98 08/02/24 09:20 Oxygen Delivery Method Room Air 08/02/24 09:20 BMI result Body Mass Index 35.6 BMI Assessment/Plan discussion: High BMI High, discussed plan: lifestyle Tobacco/Smoking Status: Tobacco use Status Tobacco use date assessed 08/02/24 08/02/24 09:15 Patient Tobacco Use Status Never used Tobacco 08/02/24 09:15 Depression Screening Interpretation: Negative Thrive Assessment: Date of Thrive Assessment Date Thrive assessed 08/02/24 08/02/24 09:15 Coding Level of Care Code Est Pt Level 4 (73262) Complex EM visit Add On G2211 Diagnoses Mild intermittent asthma without complication J45.20 Asthma complication type: uncomplicated Acneiform rash L70.8 Chronic rhinitis J31.0 Rhinitis type: chronic Class 1 obesity due to excess calories without serious comorbidity with body mass index (BMI) of 34.0 to 34.9 in adult E66.811; E66.09; Z68.34 Obesity type: due to excess calories Serious obesity comorbidity presence: without serious comorbidity BMI 34.0-34.9,adult Z68.34 Additional Codes ARI-7 Assessment Billing - ARI-7 Assessment Tool: ARI-7 Assessment 74709 ([id number]) PHQ-9 - 87220 - PHQ-9 Billing: Yes ([id number]) Asthma Control Questionnaire - ACT Interpretation: Negative ([id number]) Assessment & Plan Assessment & Plan (1) Mild intermittent asthma: Code(s): J45.20 - Mild intermittent asthma, uncomplicated Category: Medical Qualifiers: Asthma complication type: uncomplicated Qualified Code(s): J45.20 - Mild intermittent asthma, uncomplicated (2) Acneiform rash: Code(s): L70.8 - Other acne Category: Medical (3) Rhinitis: Code(s): J31.0 - Chronic rhinitis Category: Medical Qualifiers: Rhinitis type: chronic Qualified Code(s): J31.0 - Chronic rhinitis (4) Class 1 obesity with body mass index (BMI) of 34.0 to 34.9 in adult: Code(s): E66.811 - Obesity, class 1; Z68.34 - Body mass index [BMI] 34.0-34.9, adult Category: Medical Qualifiers: Obesity type: due to excess calories Serious obesity comorbidity presence: without serious comorbidity Qualified Code(s): E66.811 - Obesity, class 1; E66.09 - Other obesity due to excess calories; Z68.34 - Body mass index [BMI] 34.0-34.9, adult (5) BMI 34.0-34.9,adult: Code(s): Z68.34 - Body mass index [BMI] 34.0-34.9, adult Category: Medical Plan . Medications: New metronidazole 0.75% 1 appl topical BEDTIME 45 grams 1RF metronidazole 0.75% 1 appl topical BEDTIME 45 grams 1RF Refilled fluticasone propionate 50 mcg/actuation (Flonase Allergy Relief) administer into each nostril 1 spray intranasal BID 16 grams 3RF budesonide-formoterol 160-4.5 mcg/actuation 2 puffs inhalation BID 10.2 grams 11RF budesonide-formoterol 160-4.5 mcg/actuation 2 puffs inhalation BID 10.2 grams 11RF fluticasone propionate 50 mcg/actuation (Flonase Allergy Relief) administer into each nostril 1 spray intranasal BID 16 grams 3RF desonide 0.05% apply to external ears as needed 1 appl topical BID-QID PRN 15 grams 2RF itching Discontinued 2 benzonatate Discontinued Reason: Patient Completed Course 100 mg PO TID PRN 30 caps 0RF cough
[2024-08-02 09:20] VITALS: BP 112/70; PULSE 71; RESP 12; TEMP 36.1; O2SAT 98; BMI 35.6
--- OUTSIDE RECORDS SUMMARY | 2024-08-02 09:33 | XMS_ITS | Encounter Summary ---
Author Organization [facility] Address [address] [place] [address] Care Team Providers Care Spareribs Trimmer Name Role Phone Fang Huizar-Gabriele Primary Care Provider [phone] Encounter Details Date Type Department Care Team (Late st Contact Info) Description 05/09/2019 Interim Notes [address] [id number] [address] Social History Tobacco Use Types Packs/Day Years [...] documented as of this encounter Care Teams Spareribs Trimmer Relationship Specialty Start Date End Date Fang Huizar FNP-C [address] [place] [address] PCP - General Internal Medicine 06/02/23 documented as of this encounter
--- OUTSIDE RECORDS SUMMARY | 2024-08-02 09:33 | XMS_ITS | Clinical Summary ---
Author Organization [facility] Address [address] [place] [address] Care Team Providers Care Knitter Wire Mesh Name Role Phone Bhupendra Fang ALLRED-Gabriele Primary Care Provider [phone] Source Comments PLEASE NOTE, if this patient is a minor, it may be UNLAWFUL to discuss sensitive information that is contained in these records (such as FAMILY PLANNING, MENTAL HEALTH or SUBSTANCE ABUSE) with the minor patient's parent or other person without the patient's specific authorization.[facility] Allergies No known active allergies Medications budesonide-formot Arthur (SYMBICORT) 160-4.5 mcg/actuation inhalerIndication s:Moderate persistent asthma without complication Inhale 1 Puff into the lungs 2 (two) times daily Rinse mouth after use. Strength: 160-4.5 mcg/actuati on 10.2 g 11 02/24/2024 Active ibuprofen 600 mg tabletIndications :Viral upper respiratory tract infection Take 1 Tablet by mouth 4 (four) times daily as needed for pain 30 Tablet 2 06/27/2024 Active Active Problems Problem Noted Date Diagnosed Date [...] Imm-Pneumococcal (1 of 2 - PCV) 2005 [id number] () 01/23/2024 Imm-Influenza (#1) 2024 04/27/2022, 1 06/14/2018, 04/22/2018 [...] HEPATITIS C ANTIBODY NON-REACT LUISITO NON-REACT LUISITO [employer] Comment: HCV antibody was non-reactive. There is no laboratory evidence of HCV infection. In most cases, no further action is required. However, if recent HCV exposure is suspected, a test for HCV RNA (test code 62114) is suggested. For additional information please refer to http://education.MarketLive/faq/HDJ74p1 (This link is being provided for informational/ educational purposes only.) Blood Blood / Unknown 08/19/2023 2 :07 PM EDT 08/19/2023 2:08 PM EDT Narrative [facility] - 08/20/2023 10:21 AM EDT FASTING:UNKNOWN Fang Huizar ELECTRICAL SOFTWARE ENGINEER-C LAB - BLOOD DRAW Edited R esult - Final [facility] [address] [place] [address], [facility] [address] [address] * HIV 1/2 AG & AB W/RFLX (4TH GEN) (08/19/2023 2:07 PM EDT) HIV AG/AB, 4TH GEN NON-REAC TIVE NON-REAC TIVE [facility] Comment: HIV-1 antigen and HIV-1/HIV-2 antibodies [...] ?? For additional information please refer to http://education.MarketLive/faq/TID723 (This link is being provided for informational/ educational purposes only.) The performance of this assay has not been clinically validated in patients less than 2 years old. Blood Blood / Unknown 08/19/2023 2 :07 PM EDT 08/19/2023 2:08 PM EDT Narrative [facility] - 08/20/2023 10:21 AM EDT FASTING:UNKNOWN Fang Huizar ELECTRICAL SOFTWARE ENGINEER-C LAB - BLOOD DRAW Final Re sult [facility] [address] [address], [facility] [address] [address] * (ABNORMAL) LIPID PANEL (08/19/2023 2:07 PM EDT) Pathologist [facility] CHOLESTEROL, TOTAL 211(H) <200 mg/dL [facility] HDL CHOLESTEROL 56 > OR = 50 mg/dL [facility] TRIGLYCERIDES 110 <150 mg/dL [facility] LDL-CHOLESTEROL 133(H) 99 mg/dL (calc) [facility] Comment: Reference range: <100 Desirable range <100 mg/dL for primary prevention; ?? <70 mg/dL for patients with CHD or diabetic patients with > or = 2 CHD risk factors. LDL-C is now calculated using the Sixto calculation, which is a validated novel method providing better accuracy than the Friedewald equation in the estimation of LDL-C. Ross LARA et al. RODDY. 2013;310(19): 8169-8455 (http://education.JJ PHARMA/faq/TJK669) CHOL/HDLC RATIO 3.8 <5.0 (calc) [facility] NON-HDL CHOLESTEROL 155(H) <130 mg/dL (calc) [employer] [facility] [employer] Comment: For patients with diabetes plus 1 major ASCVD risk factor, treating to a non-HDL-C goal of <100 mg/dL (LDL-C of <70 mg/dL) is considered a therapeutic option. Blood Blood / Unknown 08/19/2023 2 :07 PM EDT 08/19/2023 2:08 PM EDT Narrative [facility] - 08/20/2023 10:21 AM EDT FASTING:UNKNOWN Fang Huizar ELECTRICAL SOFTWARE ENGINEER-C LAB - BLOOD DRAW Final Re sult [facility] [address] [place] [phone], [facility] [address] [place] [phone] * COMPREHENSIVE METABOLIC PANEL (08/19/2023 2:07 PM EDT) [facility] [address] GLUCOSE 87 65 - 99 mg/dL [employer] [facility] [employer] Comment: ?Fasting reference interval UREA NITROGEN (BUN) 15 7 - 25 mg/dL [facility] [employer] CREATININE (blood) 0.65 0.50 - 0.97 mg/dL [employer] [facility] [employer] EGFR 117 > OR = 60 mL/min/1. 73m2 [employer] [employer] BUN/CREATININE RATIO SEE NOTE: [employer] [facility] [employer] Comment: ?? Not Reported: BUN and Creatinine are within ?? reference range. ? SODIUM 138 135 - 146 mmol/L [employer] [employer] POTASSIUM 4.3 3.5 - 5.3 mmol/L [employer] [facility] [employer] CHLORIDE 105 98 - 110 mmol/L [employer] [facility] [employer] CARBON DIOXIDE 26 20 - 32 mmol/L [employer] [employer] CALCIUM 8.9 8.6 - 10.2 mg/dL [facility] PROTEIN, TOTAL 6.9 6.1 - 8.1 g/dL [facility] ALBUMIN 4.3 3.6 - 5.1 g/dL [facility] GLOBULIN 2.6 1.9 - 3.7 g/dL (calc) [facility] [place] [employer] ALBUMIN/GLOBULI N RATIO 1.7 1.0 - 2.5 (calc) [facility] BILIRUBIN, TOTAL 0.4 0.2 - 1.2 mg/dL [facility] ALKALINE PHOSPHATASE 38 31 - 125 U/L [facility] [place] [employer] AST 12 10 - 30 U/L [facility] [place] [employer] ALT 11 6 - 29 U/L [facility] [place] [employer] Blood Blood / Unknown 08/19/2023 2 :07 PM EDT 08/19/2023 2:08 PM EDT Narrative [facility] - 08/20/2023 10:21 AM EDT FASTING:UNKNOWN Fang Huizar ELECTRICAL SOFTWARE ENGINEER-C LAB - BLOOD DRAW Edited R esult - Final [facility] [address] [place] [address], [facility] [address] [address] * THINPREP PAP & HPV MRNA E6/E7 RFLX HPV 16,18/[address]/NG (06/17/2021 2:45 PM EST) CLINICAL INFORMATION See Note [facility] [employer] Comment:Routine exam LMP See Note [facility] [facility] [employer] Comment:[id number] PREV. PAP See Note [facility] [facility] [employer] Comment:NONE GIVEN PREV. BX See Note [facility] [facility] [employer] Comment:NONE GIVEN SOURCE See Note [employer] Comment:Cervix STATEMENT OF ADEQUACY See Note [employer] Comment: Satisfactory for evaluation. Endocervical/transformation zone component present. INTERPRETATION/RESU LT See Note [employer] Comment:Negative for intraep ithelial lesion or malignancy. BALANCE WHEEL ARM BURNISHER See Note [facility] [employer] Comment: RMM, CT(ASCP) CT screening location: [facility] ??[id number] COMMENT [facility] HPV MRNA E6/E7 Not Detected Not Detected [facility] Comment: Methodology: Cold Type Artist-Mediated Amplification This assay detects E6/E7 viral messenger RNA (mRNA) from 14 high-risk HPV types (16,18,31,33,35,39,45,51,52,56,58,59,66,68). The analytical performance characteristics of this assay have been determined by [employer]. The modifications have not been cleared or approved by the FDA. This assay has been validated pursuant to the CLIA regulations and is used for clinical purposes. For additional information, please refer to http://[employer]ner[employer].MarketLive/faq/RFA330p1 (This link if provided for information/ educational purposes only.) CHLAMYDIA TRACHOMATIS RNA, TMA NOT DETECTED NOT DETECTED [facility] NEISSERIA GONORRHOEAE RNA, TMA NOT DETECTED NOT DETECTED [facility] COMMENT [facility] CYTOLOGY Cervix uteri structure / Unknown 06/17/2021 2:45 PM EST 06/18/2021 6:10 AM EST Narrative [facility] - 06/19/2021 8:40 AM EST EXPLANATORY NOTE: [...] test SurePath(TM) specimens have been determined by [employer]. The modifications have not been cleared or approved by the FDA. This assay has been validated pursuant to the CLIA regulations and is used for clinical purposes. For additional information, please refer to https://Cynergen.MarketLive/faq/HVE383 (This link is being provided for information/ educational purposes only.) Francia Thomas [facility] LAB - NO BLOOD DRAW Final R esult [employer] [place] [employer] [address] [place] [address], [employer] [employer] [address] [address] from Last 3 Months or Most Recently Relevant to Health Maintenance Insurance [place] MEDICA[place] NET [place] MED[place] HEALTH SAFETY NET DENTAL Care Teams Knitter Wire Mesh Relationship Specialty Start Date End Date Fang Huizar FNP-C [address] [place] [address] PCP - General Internal Medicine 06/02/23
--- OUTSIDE RECORDS SUMMARY | 2024-08-02 09:33 | XMS_ITS | Clinical Summary ---
Author Organization [email or web address] [facility] Address [address] [place] [address] Care Team Providers Care Concrete Form Setter Name Role Phone Unavailable Primary Care Provider [...] ESTABLISHED PATIENT Routine 06/03/2023 10:00 AM EST INTRAORAL - COMPLETE SERIES OF RADIOGRAPHIC IMAGES Routine 09/09/2016 12:00 AM EDT from Last 3 Months or Most Recently Relevant to Health Maintenance Insurance DENTAL-[facility] MEDICAID STAND ADULT [place]ENTAL[place] ADULT DENTAL - HSN FULL (MEDICAID)
== END 2024-08-02 11:28 | disposition home or self-care (01) ==
LOC: HO.HMCFM 08:56
PROVIDERS: PCP Nurse Practitioner Family; Visit Provider Nurse Practitioner Family
DX: J45.20 Mild intermittent asthma, uncomplicated (principal); L70.8 Other acne; J31.0 Chronic rhinitis; E66.811 Obesity, class 1; E66.09 Other obesity due to excess calories; Z68.34 Body mass index [BMI] 34.0-34.9, adult

== ENCOUNTER → 2024-08-02 08:55 | Outpatient (BNVA) | payer OTHER, SELFPAY | PROVIDERS: PCP Nurse Practitioner Family; Visit Provider Nurse Practitioner Family | DX: J45.20 Mild intermittent asthma, uncomplicated (principal); L70.8 Other acne; J31.0 Chronic rhinitis; E66.09 Other obesity due to excess calories; Z68.34 Body mass index [BMI] 34.0-34.9, adult; Z71.3 Dietary counseling and surveillance | CPT/HCPCS: 96127; 96160; 99212 ==

== ENCOUNTER 2024-08-28 09:10 | Outpatient (AMB) | payer OTHER, SELFPAY ==
--- NOTE | 2024-08-28 09:18 | MHC.PC.OV ---
Vital Signs 08/28/24 09:31 Height 4 ft 7 in Weight 148 lb 4 oz BMI 34.5 BP 117/70 Blood Pressure Location Lt brachial Position Sitting Respiration 12 Pulse 85 Pulse Source Pulse Oximeter Temp 98.9 F Temp Source Oral Pulse Oximetry (%) 98 Oxygen Delivery Method Room Air Intake Visit Reasons: Coughing and Headaches Intake Note: Patient c/o coughing, bodyaches and headache x 5 days. Patient kids have flu at home. Field Placement Director Required: Yes Field Placement Director Language: Tamil Field Placement Director Name: [id number] Allergies No Known Allergies Allergy (Verified 08/28/24 09:50) Medication List - Last Reconciled 08/28/24 by Linda Boogie, GM MOBILE- albuterol sulfate 90 mcg/actuation (Ventolin HFA) 2 puffs inhalation Q6H PRN budesonide-formoterol 160-4.5 mcg/actuation 2 puffs inhalation BID cetirizine (Zyrtec) 10 mg PO DAILY desonide 0.05% 1 appl topical BID-QID PRN fluticasone propionate 50 mcg/actuation (Flonase Allergy Relief) 1 spray intranasal BID metronidazole 0.75% 1 appl topical BEDTIME Tobacco use date assessed: 08/02/24 Dental Screening Dental Screen Date: 08/02/24 HPI HPI Comments History of Present Illness Details Field Placement Director [id number] 38-year-old female presenting with eczema, obesity, asthma and allergic rhinitis Here today with complaints of flu-like symptoms Cough and headache Started 5 days ago Exposed to sick contacts + sore throat Denies fever + chills + wheezing Inhalers APAP and Motrin short lived relief She was also prescribed topical metronidazole for itchy acneiform lesions on her cheeks with the last office visit. Has been using as directed however has had no improvement. Physical Exam General: Well developed, well nourished, in no acute distress. Appears stated age. Head: Normocephalic, atraumatic. Eyes: Pupils are equal, round and reactive to light and accommodation. Conjunctivae are clear. Vision grossly normal. TM intact and clear bilat Nares patent, no sinus tenderness Pharynx WNL Lungs: Coarse rhonci BLL improved w/ cough, congested cough w/o distress Heart: Regular rate and rhythm. No murmurs, click, rubs or gallops are noted. Skin: acneform pustules on bilat cheeks Plan: Azithromycin, prednisone and Tessalon for her respiratory symptoms. Continue to use inhalers as directed. Discontinue topical metronidazole as this has provided no relief for her skin condition. Offered and declined referral to Dermatology. Trialed do off to see if this helps. If continues we will need to refer to Dermatology. Return to the office education provided This note is constructed using voice recognition software. While every effort has been made to ensure accuracy in integration director, still errors may have been included Sometimes, these errors may affect the content or meaning of the given sentence . [facility] Social History Housing: Apartment Patient Tobacco Use Status: Never used Tobacco Cognitive needs: No Hearing needs: No Vision needs: No Questionnaire PHQ-9 Over the last 2 weeks, how often have you been bothered by any of the following problems? 1. Little interest or pleasure in doing things: several days 2. Feeling down, depressed, or hopeless: not at all 3. Trouble falling or staying asleep, or sleeping too much: several days 4. Feeling tired or having little energy: not at all 5. Poor appetite or overeating: not at all 6. Feeling bad about yourself - or that you are a failure or have let yourself or your family down: not at all 7. Trouble concentrating on things, such as reading the newspaper or watching television: not at all 8. Moving or speaking so slowly that other people could have noticed. Or the opposite - being so fidgety or restless that you have been moving around a lot more than usual: not at all 9. Thoughts that you would be better off or of hurting yourself in some way: not at all Total score: 2 Depression Screening Interpretation: Negative Depression Screening Done: Yes 04550 - PHQ-9 Billing: Yes Source: Developed by Drs. Jeremy Tristan, Kayla Toure, Bayron Manrique and colleagues, with an educational britt from [employer]. Thrive Questionnaire Date Thrive assessed: 08/28/24 I am a: Patient What is your living situation today?: I have a steady place to live Within the past 12 months, did the food you bought not last and you didn't have the money to get more?: Never true Within the past 12 months, did you worry whether your food would run out before you got money to buy more?: Never true Do you have trouble paying for medicines?: No Do you have trouble getting transportation to medical appointments?: No Do you have trouble paying your heating and electricity bill?: No Do you have trouble taking care of your child, family member or friend?: No Do you have trouble with day-to-day activities such as bathing, preparing meals, shopping, managing finances, etc.?: No Are you currently unemployed and looking for a job?: No Are you interested in more education?: No THRIVE Score: 0 ARI-7 AMB Questionnaire ARI-7 Date ARI - 7 assessed: 08/28/24 Feeling nervous, anxious, or on edge: 0 = Not at all Not being able to stop or control worryin = Not at all Worrying too much about different things: 0 = Not at all Trouble relaxin = Several days Being so restless that it is hard to sit still: 0 = Not at all Becoming easily annoyed or irritable: 0 = Not at all Feeling afraid as if something awful might happen: 0 = Not at all Total ARI-7 score (0-4 normal; 5-9 mild; 10-14 moderate; 15-21 severe): 1 Source: Developed by Drs. Jeremy Tristan, Kayla Toure, Bayron Manrique and colleagues, with an educational britt from [employer]. ARI-7 Assessment Billing ARI-7 Assessment Tool: ARI-7 Assessment 02646 Physical exam (Primary Care) Vital Signs: Last Vital Signs Temp 98.9 F 08/28/24 09:31 Pulse 85 08/28/24 09:31 Resp 12 08/28/24 09:31 BP 117/70 08/28/24 09:31 Pulse Ox 98 08/28/24 09:31 Oxygen Delivery Method Room Air 08/28/24 09:31 BMI result Body Mass Index 34.5 Tobacco/Smoking Status: Tobacco use Status Tobacco use date assessed 08/02/24 08/28/24 09:20 Patient Tobacco Use Status Never used Tobacco 08/28/24 09:20 PHQ-9: PHQ-9 Score PHQ-9: Total score 2 08/28/24 09:35 Depression Screening Interpretation: Negative Thrive Assessment: Date of Thrive Assessment Date Thrive assessed 08/28/24 08/28/24 09:20 Coding Level of Care Code Est Pt Level 4 (91364) Complex EM visit Add On G2211 Diagnoses Acneiform rash L70.8 Mild intermittent asthma without complication J45.20 Asthma complication type: uncomplicated Additional Codes ARI-7 Assessment Billing - ARI-7 Assessment Tool: ARI-7 Assessment 86117 ([id number]) PHQ-9 - 79014 - PHQ-9 Billing: Yes ([id number]) Assessment & Plan Assessment & Plan (1) Acneiform rash: Code(s): L70.8 - Other acne Category: Medical (2) Mild intermittent asthma: Comment: in exacerbation Code(s): J45.20 - Mild intermittent asthma, uncomplicated Category: Medical Qualifiers: Asthma complication type: uncomplicated Qualified Code(s): J45.20 - Mild intermittent asthma, uncomplicated Plan . Medications: New benzonatate 100 mg PO TID 10 days PRN 30 caps 1RF cough prednisone 50 mg PO DAILY 5 tabs 0RF azithromycin For 250 mg dose pack: take 500 mg today (day 1), then 250 mg for 4 days (days 2-5) PO 5 days 6 tabs 0RF clindamycin-benzoyl peroxide 1.2 %(1 % base) -5 % 1 appl topical QPM 45 grams 2RF
[2024-08-28 09:31] VITALS: BP 117/70; PULSE 85; RESP 12; TEMP 37.2; O2SAT 98; BMI 34.5
--- OUTSIDE RECORDS SUMMARY | 2024-08-28 10:11 | XMS_ITS | Clinical Summary ---
Author Organization [employer] Address [address] [facility] [address] [place] [address] Care Team Providers Care Junior Manufacturing Engineer Name Role Phone Unavailable Primary Care Provider [...] Most Recently Relevant to Health Maintenance Insurance [facility]AL-[facility] MEDICAID STAND ADULT [place] ADULT DENTAL - [facility]SN FULL (MEDICAID)
--- OUTSIDE RECORDS SUMMARY | 2024-08-28 10:11 | XMS_ITS | Clinical Summary ---
Author Organization [facility] Address [address] [place] [address] Care Team Providers Care Truck Despatcher Name Role Phone Fang Huizar-Gabriele Primary Care Provider [phone] Source Comments PLEASE NOTE, if this patient is a minor, it may be UNLAWFUL to discuss sensitive information that is contained in these records (such as FAMILY PLANNING, MENTAL HEALTH or SUBSTANCE ABUSE) with the minor patient's parent or other person without the patient's specific authorization.[facility] Allergies No known active allergies Medications budesonide-formot Arthur (SYMBICORT) 160-4.5 mcg/actuation inhalerIndication s:Moderate persistent asthma without complication ([facility]) Inhale 1 Puff into the lungs 2 (two) times daily Rinse mouth after use. Strength: 160-4.5 mcg/actuati on 10.2 g 11 02/24/2024 Active ibuprofen 600 mg tabletIndications :Viral upper respiratory tract infection Take 1 Tablet by mouth 4 (four) times daily as needed for pain 30 Tablet 2 06/27/2024 Active Active Problems Problem Noted Date Diagnosed Date Moderate persistent asthma without complication ([facility]) 06/02/2022 History of COVID-19:05/12/2021 05/15/2021 Immunizations Immunization Administration Dates Next Due Flu, Cell Culture [...] Health Maintenance Due Date Last Done Comments Anxiety Screening 1986 HPV Screening 1986 Imm-Hepatitis B (1 of 3 - 19 + 3-dose series) 2005 Imm-Pneumococcal (1 of 2 - PCV) 2005 [id number] ( season) 2024 Imm-Influenza (#1) 2024 04/27/2022, 1 06/14/2018, 04/22/2018 Alcohol and Drug Screen 05/24/2024 08/19/2023, 09/21 Depression Annual Screen 05/24/2024 08/19/2023 Pap Smear 06/17/2024 06/17/2021 Annual Preventive Care Visit 08/18/2024 08/19/2023, 04/14/2019 Relationship Safety Screening/Counseling 08/18/2024 08/19/2023, 04/14/2019 Dental BW 12/23/2024 12/22/2023 Dental Examination 12/23/2024 12/22/2023 Dental Perio Charting 12/23/2024 12/22/2023 Tobacco Screening 01/02/2025 01/03/2024, 08/19/2023 Dental Prophy 01/04/2025 01/03/2024 Cervical Cancer Screening 06/17/2026 Pap + HPV 06/17/2026 06/17/2021 Diabetes Screening 08/18/2026 08/19/2023, 08/19/2023 Hypertension Screening (#1) 01/02/2027 Dental FMX/Pano 12/23/2028 12/22/2023 Imm-DTaP/Tdap/Td (2 - [...] HEPATITIS C ANTIBODY NON-REACT LUISITO NON-REACT LUISITO [facility] Comment: HCV antibody was non-reactive. There is no laboratory evidence of HCV infection. In most cases, no further action is required. However, if recent HCV exposure is suspected, a test for HCV RNA (test code 47161) is suggested. For additional information please refer to http://education.Lifesum/faq/XDS07t8 (This link is being provided for informational/ educational purposes only.) Blood Blood / Unknown 08/19/2023 2 :07 PM EDT 08/19/2023 2:08 PM EDT Narrative [employer] - 08/20/2023 10:21 AM EDT FASTING:UNKNOWN us Fang Huizar SENIOR APPLICATION SECURITY CONSULTANT-C LAB - BLOOD DRAW Edited R esult - Final [employer] [address] [place] [id number], [employer] [address] [address] * HIV 1/2 AG & AB W/RFLX (4TH GEN) (08/19/2023 2:07 PM EDT) HIV AG/AB, 4TH GEN NON-REAC TIVE NON-REAC TIVE [facility] Comment: HIV-1 antigen and HIV-1/HIV-2 antibodies were [...] ?? For additional information please refer to http://education.Lifesum/faq/PUS550 (This link is being provided for informational/ educational purposes only.) The performance of this assay has not been clinically validated in patients less than 2 years old. Blood Blood / Unknown 08/19/2023 2 :07 PM EDT 08/19/2023 2:08 PM EDT Narrative [employer] - 08/20/2023 10:21 AM EDT FASTING:UNKNOWN Fang Huizar SENIOR APPLICATION SECURITY CONSULTANT-C LAB - BLOOD DRAW Final Re sult [employer] [address] [place] [id number], [facility] [address] [place] [phone] * COMPREHENSIVE METABOLIC PANEL (08/19/2023 2:07 PM EDT) Pathologist [facility] GLUCOSE 87 65 - 99 mg/dL [facility] Comment: ?Fasting reference interval UREA NITROGEN (BUN) 15 7 - 25 mg/dL [facility] CREATININE (blood) 0.65 0.50 - 0.97 mg/dL [facility] EGFR 117 > OR = 60 mL/min/1. 73m2 [facility] BUN/CREATININE RATIO SEE NOTE: [facility] Comment: ?? Not Reported: BUN and Creatinine are within ?? reference range. ? SODIUM 138 135 - 146 mmol/L [employer] [facility] POTASSIUM 4.3 3.5 - 5.3 mmol/L [facility] CHLORIDE 105 98 - 110 mmol/L [facility] CARBON DIOXIDE 26 20 - 32 mmol/L [facility] CALCIUM 8.9 8.6 - 10.2 mg/dL [facility] PROTEIN, TOTAL 6.9 6.1 - 8.1 g/dL [employer] [place] [employer] ALBUMIN 4.3 3.6 - 5.1 g/dL [facility] GLOBULIN 2.6 1.9 - 3.7 g/dL (calc) [facility] ALBUMIN/GLOBULI N RATIO 1.7 1.0 - 2.5 (calc) [facility] BILIRUBIN, TOTAL 0.4 0.2 - 1.2 mg/dL [employer] [facility] ALKALINE PHOSPHATASE 38 31 - 125 U/L [employer] [facility] AST 12 10 - 30 U/L [employer] [facility] ALT 11 6 - 29 U/L [facility] Blood Blood / Unknown 08/19/2023 2 :07 PM EDT 08/19/2023 2:08 PM EDT Narrative [employer] - 08/20/2023 10:21 AM EDT FASTING:UNKNOWN Fang Huizar SENIOR APPLICATION SECURITY CONSULTANT-C LAB - BLOOD DRAW Edited R esult - Final [employer] [address] [address], [employer] [address] [address] * THINPREP PAP & HPV MRNA E6/E7 RFLX HPV 16,18/[address]/NG (06/17/2021 2:45 PM EST) CLINICAL INFORMATION See Note [facility] Comment:Routine exam LMP See Note [facility] Comment:[id number] PREV. PAP See Note [facility] Comment:NONE GIVEN PREV. BX See Note [facility] Comment:NONE GIVEN SOURCE See Note [facility] Comment:Cervix STATEMENT OF ADEQUACY See Note [facility] Comment: Satisfactory for evaluation. Endocervical/transformation zone component present. INTERPRETATION/RESU LT See Note [facility] Comment:Negative for intraep ithelial lesion or malignancy. LAUNDROMAT WORKER See Note [employer] [facility] Comment: RMM, CT(ASCP) CT screening location: [address] ??[address] COMMENT [employer] [facility] HPV MRNA E6/E7 Not Detected Not Detected [employer] [facility] Comment: Methodology: Glaze Grinder-Mediated Amplification This assay detects E6/E7 viral messenger RNA (mRNA) from 14 high-risk HPV types (16,18,31,33,35,39,45,51,52,56,58,59,66,68). The analytical performance characteristics of this assay have been determined by [employer]. The modifications have not been cleared or approved by the FDA. This assay has been validated pursuant to the CLIA regulations and is used for clinical purposes. For additional information, please refer to http://Returbo.Lifesum/faq/WNY802z8 (This link if provided for information/ educational purposes only.) CHLAMYDIA TRACHOMATIS RNA, TMA NOT DETECTED NOT DETECTED [employer] [facility] NEISSERIA GONORRHOEAE RNA, TMA NOT DETECTED NOT DETECTED [employer] [facility] COMMENT [employer] [facility] CYTOLOGY Cervix uteri structure / Unknown 06/17/2021 2:45 PM EST 06/18/2021 6:10 AM EST Narrative [employer] [facility] - 06/19/2021 8:40 AM EST [...] test SurePath(TM) specimens have been determined by [employer]. The modifications have not been cleared or approved by the FDA. This assay has been validated pursuant to the CLIA regulations and is used for clinical purposes. For additional information, please refer to https://Returbo.Lifesum/faq/RRK569 (This link is being provided for information/ educational purposes only.) [facility] - NO BLOOD DRAW Final R esult [facility] [address] [place] [address], [facility] [address] [address] from Last 3 Months or Most Recently Relevant to Health Maintenance [place] Care Teams Truck Despatcher Relationship Specialty Start Date End Date Fang Huizar FNP-C [address] [place] [address] PCP - General Internal Medicine 06/02/23
--- OUTSIDE RECORDS SUMMARY | 2024-08-28 10:11 | XMS_ITS | Encounter Summary ---
Author Organization [facility] Address [address] [place] [address] Care Team Providers Care Carton Folder Name Role Phone Fang Huizar-Gabriele Primary Care Provider [phone] Encounter Details Date Type Department Care Team (Late st Contact Info) Description 05/09/2019 Interim Notes [address] [phone] [address] [address] Social History Tobacco Use Types Packs/Day Years [...] documented as of this encounter Care Teams Carton Folder Relationship Specialty Start Date End Date Fang Huizar FNP-C [address] [place] [address] PCP - General Internal Medicine 06/02/23 documented as of this encounter
== END 2024-08-28 09:58 | disposition home or self-care (01) ==
LOC: HO.HMCFM 09:11
PROVIDERS: PCP Nurse Practitioner Family; Visit Provider Nurse Practitioner Family
DX: L70.8 Other acne (principal); J45.20 Mild intermittent asthma, uncomplicated

== ENCOUNTER → 2024-08-28 09:10 | Outpatient (BNVA) | payer SELFPAY | PROVIDERS: PCP Nurse Practitioner Family; Visit Provider Nurse Practitioner Family | DX: J45.20 Mild intermittent asthma, uncomplicated (principal); L70.8 Other acne | CPT/HCPCS: 96127; 99212 ==

== ENCOUNTER 2024-09-21 12:37 | Outpatient (AMB) | payer OTHER, SELFPAY ==
--- NOTE | 2024-09-21 12:40 | AM.OFFWIN_ITS ---
Intake Vital Signs 09/21/24 12:47 Height 4 ft 7 in Weight 151 lb BMI 35.1 BP 102/68 Blood Pressure Location Rt brachial Position Sitting Respiration 12 Pulse 86 Pulse Source Pulse Oximeter Temp 97.6 F Temp Source Oral Pulse Oximetry (%) 98 Oxygen Delivery Method Room Air Intake Visit Reasons: eye swollen, cold symptoms Intake Note: Patient c/o swollen eyes, itchy eyes, runny nose, cough and cold sx x 3 days Patient Tobacco Use Status: Never used Tobacco Allergies No Known Allergies Allergy (Verified 09/21/24 12:58) Medication List - Last Reconciled 09/21/24 by JAYDEN Ventura No Known Home Meds Do you need a note to return to daycare/school/sports/work: No HPI HPI Comments History of Present Illness Details [place] [id number] 38-year-old female presenting with eczem a, obesity, asthma and allergic rhinitis History of Present Illness - The patient is a 38-year-old female pr esenting with cold-like symptoms. - Symptoms started roughly three days ag o and involve severe itchiness of both eyes, redness, sneezing, and headache. - A visit to the emergency department re ported a negative result for a rapid strep test, COVID, influenza, and RSV - [place] [facility] [place]. - The patient experiences shortness of b reath, treated with inhalers due to a history of reactive airway disease. - Medications initiated in the ER includ e Zyrtec, Flonase, and allergy eye drops, although relief has been partial. Visit 09/19/24 [facility] ED, workup reviewed. Physical Exam General: Well developed, well nourished, in no acute distress. Appears stated age. Head: Normocephalic, atraumatic. Eyes: Pupils are equal, round and reactive to light and accommodation. Conjunctivae are clear. Vision grossly normal. TM intact and clear bilat Nares patent, turbinates pale and edematous, no sinus tenderness Pharynx WNL Lungs: Clear throughout Heart: Regular rate and rhythm. No murmurs, click, rubs or gallops are noted. Results - Negative rapid strep test. - Negative COVID-19, influenza, and RSV screenings. Discussion Notes I discussed with the patient the likely diagnoses of allergic conjunctivitis and rhinitis leading to her symptoms. I reviewed the treatments already provided in the emergency department, such as Zyrtec, Flonase, and allergy eye drops, and reinforced their continued use. I proposed a short course of prednisone to further reduce inflammation and expedite symptom resolution. Her reactive airway disease was addressed, and I emphasized the importance of continuing with prescribed inhalers before known triggers. The patient was informed about the anticipated improvement with consistent medication use and advised to monitor symptoms. We discussed the potential risks of limited-duration prednisone therapy, noting her positive response to it in the past. The option to use the nasal spray provided by the emergency department was affirmed as well. The patient was instructed to follow up if symptoms worsen or do not improve. Assessment and Plan 1. Allergic Conjunctivitis The patient is encouraged to continue Zyrtec, Flonase, and allergy eye drops. Add prednisone as a short course to control inflammation, considering her history of positive response to steroids. 2. Allergic Rhinitis and Upper Respirato ry Infection Continue Zyrtec and Flonase for managing allergic symptoms and ongoing viral upper respiratory symptoms, with improvements expected with continuous use. 3. Reactive Airway Disease Maintain regular use of inhalers during symptomatic periods or known triggers. Reinforce the importance of inhaler use as a preventive strategy. Patient Instructions - Continue taking Zyrtec, Flonase, and e ye drops as prescribed. - Use the inhaler as needed, especially before exposure to triggers. - If prednisone is prescribed, take it a s instructed, and complete the course. - Monitor symptoms, and seek medical att ention if symptoms persist or worsen. - Follow up if no improvement or worseni ng of symptoms occurs. Consent Patient was informed and verbally consented to the use of an ambient scribe for clinic note documentation during this visit. Total time spent caring for the patient today was 30 minutes. This includes time spent before the visit reviewing the chart, time spent during the visit, and time spent after the visit on documentation, reviewing laboratory results, diagnostic imaging, medications, performing a medically necessary evaluation, counseling on diagnoses, care coordination, ordering appropriate tests, ordering appropriate medications, review of tests performed by other providers, reporting test results with the patient, communication with other healthcare providers. [facility] Social History Housing: Apartment Patient Tobacco Use Status: Never used Tobacco Cognitive needs: No Hearing needs: No Vision needs: No Physical Exam Vital Signs: Last Vital Signs Temp 97.6 F 09/21/24 12:47 Pulse 86 09/21/24 12:47 Resp 12 09/21/24 12:47 BP 102/68 09/21/24 12:47 Pulse Ox 98 09/21/24 12:47 Oxygen Delivery Method Room Air 09/21/24 12:47 BMI result Body Mass Index 35.1 Assessment & Plan Assessment & Plan (1) Hospital discharge follow-up: Code(s): Z09 - Encounter for follow-up examination after completed treatment for conditions other than malignant neoplasm (2) Environmental and seasonal allergies: Code(s): J30.89 - Other allergic rhinitis Plan . Medications: New prednisone 20 mg PO DAILY 5 tabs 0RF Refilled albuterol sulfate 90 mcg/actuation (Ventolin HFA) 2 puffs inhalation Q6H PRN 8.5 grams 1RF shortness of breath or wheezing budesonide-formoterol 160-4.5 mcg/actuation 2 puffs inhalation BID 10.2 grams 11RF fluticasone propionate 50 mcg/actuation (Flonase Allergy Relief) administer into each nostril 1 spray intranasal BID 16 grams 3RF Coding Level of Care Code Est Pt Level 4 (83038) Diagnoses Hospital discharge follow-up Z09 Environmental and seasonal allergies J30.89
[2024-09-21 12:47] VITALS: BP 102/68; PULSE 86; RESP 12; TEMP 36.4; O2SAT 98; BMI 35.1
== END 2024-09-21 15:13 | disposition home or self-care (01) ==
LOC: HO.HMCFM 12:38
PROVIDERS: PCP Nurse Practitioner Family; Visit Provider Nurse Practitioner Family
DX: Z09 Encounter for follow-up examination after completed treatment for conditions other than malignant neoplasm (principal); J30.89 Other allergic rhinitis

== ENCOUNTER → 2024-09-21 12:37 | Outpatient (BNVA) | payer SELFPAY | PROVIDERS: PCP Nurse Practitioner Family; Visit Provider Nurse Practitioner Family | DX: Z09 Encounter for follow-up examination after completed treatment for conditions other than malignant neoplasm (principal); J30.89 Other allergic rhinitis; J45.909 Unspecified asthma, uncomplicated; E66.9 Obesity, unspecified; Z68.35 Body mass index [BMI] 35.0-35.9, adult | CPT/HCPCS: 99212 ==

== ENCOUNTER 2024-10-19 11:34 | Outpatient (AMB) | payer OTHER, SELFPAY ==
--- NOTE | 2024-10-19 11:37 | A.OFFPC_ITS ---
Vital Signs 10/19/24 11:45 Height 4 ft 7 in Weight 148 lb BMI 34.4 BP 115/70 Blood Pressure Location Rt brachial Position Sitting Respiration 12 Pulse 72 Pulse Source Pulse Oximeter Temp 97.2 F Temp Source Oral Pulse Oximetry (%) 98 Oxygen Delivery Method Room Air Intake Visit Reasons: Headache Intake Note: Patient c/o itchy and watery eyes, runny nose, and headaches. Patient also feeling extremely tierd Truck Guard Required: Yes Truck Guard Language: Tamil Truck Guard Name: Catalina [id number] Allergies No Known Allergies Allergy (Verified 10/19/24 11:57) Medication List - Last Reconciled 10/19/24 by Linda Boogie, SLD TEACHER-BC albuterol sulfate 90 mcg/actuation (Ventolin HFA) 2 puffs inhalation Q6H PRN budesonide-formoterol 160-4.5 mcg/actuation 2 puffs inhalation BID fluticasone propionate 50 mcg/actuation (Flonase Allergy Relief) 1 spray intranasal BID Tobacco use date assessed: 10/19/24 Dental Screening Dental Screen Date: 10/19/24 Did you have a dental visit in the last 12 months?: Yes Did you have a dental problem in the last 6 months where you did not have access to dental care?: No Was dental information given to patient?: Patient has dentist HPI HPI Comments History of Present Illness Details Truck Guard [id number] 39-year-old female presenting with heada ches, itching in eyes, sneezing APAP, motrin, eye drops History of Present Illness - The patient is a 39-year-old female pr esenting with allergic symptoms. - Headache and eye itching are frequent and episodic. - Symptoms onset four to five days ago. - Sneezing and eye itching suggest aller gic cause. - Tylenol and Motrin used without full r elief. - Eye drops give temporary relief. - Sore throat resolved with cough drops two days ago. - Interest in allergy shots and local sp ecialist referral. - Current nasal spray use noted. Review of Systems - Head: Reports headache. - Eyes: Reports itching. - Nose: Reports sneezing. Denies nasal c ongestion. - Throat: Reports sore throat resolved w ith cough drops. - Lungs: Denies cough or respiratory dis tress. Physical Exam General: Well developed, well nourished, in no acute distress. Appears stated age. Head: Normocephalic, atraumatic. Eyes: Pupils are equal, round and reactive to light and accommodation. Conjunctivae are clear. Vision grossly normal. TM intact and clear bilat Nares patent, turbinates pale and edematous, no sinus tenderness Pharynx WNL Lungs: Clear throughout Heart: Regular rate and rhythm. No murmurs, click, rubs or gallops are noted. Discussion Notes I discussed with the patient that her symptoms are likely due to allergic rhinitis and allergic conjunctivitis. We talked about the potential benefits of allergy shots, which require a blood test to identify allergens. I explained the mechanism of allergy shots and reassured her of their safety, with no significant side effects. The patient is interested in a referral to a local sales and in home delivery specialist in [place]. I also discussed the addition of Singulair (Montelukast) at bedtime to help manage her symptoms while waiting for specialist care. I explained that Singulair can be used in conjunction with her current nasal spray, eye drops, and inhalers. The patient consented to these plans. Assessment and Plan 1. Allergic Rhinitis - Allergy testing and shots recommended. - Singulair prescribed for symptom contr ol. - Referral to sales and in home delivery specialist. 2. Allergic Conjunctivitis - Continue eye drops. - Zaditor prescribed. Patient Instructions - Take Singulair every night at bedtime. - Use nasal spray and eye drops as neede d for symptoms. - Expect a call for an appointment with the sales and in home delivery specialist in [place]. - Continue using inhalers as previously directed. - Monitor symptoms and seek care if they worsen. - RTO as scheduled or sooner as needed Consent Patient was informed and verbally consented to the use of an ambient scribe for clinic note documentation during this visit. [facility] Social History Housing: Apartment Patient Tobacco Use Status: Never used Tobacco e-Cigarette/Vaping Use: Never Used Second Hand Smoke Exposure: No service: No Current occupational status: unemployed Cognitive needs: No Hearing needs: No Vision needs: No Questionnaire Thrive Questionnaire Date Thrive assessed: 07/05/24 ARI-7 AMB Questionnaire ARI-7 Date ARI - 7 assessed: 08/28/24 Source: Developed by Drs. Jeremy Tristan, Kayla Toure, Bayron Manrique and colleagues, with an educational britt from [employer]. Physical exam (Primary Care) Vital Signs: Last Vital Signs Temp 97.2 F 10/19/24 11:45 Pulse 72 10/19/24 11:45 Resp 12 10/19/24 11:45 BP 115/70 10/19/24 11:45 Pulse Ox 98 10/19/24 11:45 Oxygen Delivery Method Room Air 10/19/24 11:45 BMI result Body Mass Index 34.4 Tobacco/Smoking Status: Tobacco use Status Tobacco use date assessed 10/19/24 10/19/24 11:41 Patient Tobacco Use Status Never used Tobacco 10/19/24 11:41 e-Cigarette/Vaping Use Never Used 10/19/24 11:41 Thrive Assessment: Date of Thrive Assessment Date Thrive assessed 07/05/24 10/19/24 11:41 Coding Level of Care Code Est Pt Level 3 (03497) Complex EM visit Add On G2211 Diagnoses Chronic rhinitis J31.0 Rhinitis type: chronic Environmental and seasonal allergies J30.89 Assessment & Plan Assessment & Plan (1) Rhinitis: Code(s): J31.0 - Chronic rhinitis Category: Medical Qualifiers: Rhinitis type: chronic Qualified Code(s): J31.0 - Chronic rhinitis (2) Environmental and seasonal allergies: Code(s): J30.89 - Other allergic rhinitis Category: Medical Plan . Orders: Referrals Allergy & Immunology Referral J30.89 - Other allergic rhinitis, J31.0 - Chronic rhinitis Medications: New montelukast (Singulair) 10 mg PO BEDTIME 90 tabs 2RF ketotifen fumarate 0.025%(0.035%) (Zaditor) 1 drp ophthalmic (eye) Q12H PRN 5 mL 12RF allergy symptoms
[2024-10-19 11:45] VITALS: BP 115/70; PULSE 72; RESP 12; TEMP 36.2; O2SAT 98; BMI 34.4
--- OUTSIDE RECORDS SUMMARY | 2024-10-19 11:55 | XMS_ITS | Clinical Summary ---
Author Organization [facility] Address [address] [place] [address] Care Team Providers Care Timber Appraiser Name Role Phone Unavailable Primary Care Provider [...] Comments Depression Screening 1986 SDOH Screening 1986 Disability Screening 1986 Alcohol/Substance Use Screening 1998 Family [...] patient's age to complete this topic Meningococcal B Vaccine Aged Out No l onger eligible based on patient's age to complete [...] Most Recently Relevant to Health Maintenance Insurance D[place]AL-[facility] MEDICAID STAND ADULT D[place]AL[place] ADULT DENTAL - [facility] FULL (MEDICAID)
== END 2024-10-19 12:09 | disposition home or self-care (01) ==
LOC: HO.HMCFM 11:35
PROVIDERS: PCP Nurse Practitioner Family; Visit Provider Nurse Practitioner Family
DX: J31.0 Chronic rhinitis (principal); J30.89 Other allergic rhinitis

== ENCOUNTER → 2024-10-19 11:34 | Outpatient (BNVA) | payer OTHER, SELFPAY | PROVIDERS: PCP Nurse Practitioner Family; Visit Provider Nurse Practitioner Family | DX: J30.89 Other allergic rhinitis (principal) | CPT/HCPCS: 99212 ==

== ENCOUNTER 2024-11-06 13:46 | Outpatient (AMB) | payer OTHER, SELFPAY ==
--- NOTE | 2024-11-06 13:47 | AM.OFFWIN_ITS ---
Intake Vital Signs 3 11/06/24 13:55 Height 4 ft 7 in Weight 147 lb BMI 34.2 BP 99/68 Blood Pressure Location Lt brachial Position Sitting Respiration 12 Pulse 58 Pulse Source Pulse Oximeter Temp 97.6 F Temp Source Oral Pulse Oximetry (%) 98 Oxygen Delivery Method Room Air Intake Visit Reasons: Rash Intake Note: Patient c/o rash all over head, eyes swollen and forehead rash after using a color hair dye last wednesday. Patient went to [facility] ER on Wednesday and was given medications. Patient Tobacco Use Status: Never used Tobacco Refrigerated National Truck Driver Required: Yes Refrigerated National Truck Driver Language: Wendy Refrigerated National Truck Driver Name: Infant [id number] Allergies No Known Allergies Allergy (Verified 11/06/24 13:47) Do you need a note to return to daycare/school/sports/work: No HPI HPI Comments 2 History of Present Illness0 Details Refrigerated National Truck Driver [id number] History of Present Illness - The patient is a 39-year-old female pr esenting for ED fu, ED visit 11/05/24 for a rash. - Symptoms of allergic contact dermatiti s began two days after using a new hair dye. - Located on scalp and behind the ears. - Experienced facial swelling and persis tent itching. - Swelling and rash have improved after prednisone and Benadryl. - No history of previous reactions to portillo ir dye. - Sent home w/ prednisone 60mg QD and be nadryl 25mg TID, taking as directed w/improvement but not resolution Review of Systems - Skin: Reports rash and itching on the scalp and behind the ears. Reports swelling around the face. - Allergic/Immunologic: Reports use of n ew hair dye. Physical Exam See images below. No airway involvement Discussion Notes I discussed with the patient that the symptoms are consistent with Allergic Contact Dermatitis due to the new hair dye used. I explained that the allergens may reside in the hair follicles, making it difficult to fully resolve the symptoms without professionally removing the dye. I recommended continuation of current medications?prednisone and Benadryl. Additionally, I suggested considering a prescription steroid shampoo to help alleviate the symptoms further, though I indicated that her insurance might not cover its cost. I instructed the patient to inquire about the cost at the pharmacy. Finally, I advised her to contact her physical education specialist for further evaluation and ensure no further use of the offending hair dye product. Assessment and Plan 1. Allergic Contact Dermatitis - Continue prednisone 60 mg daily, Benad ryl three times daily. - Consider hair dye removal professional ly. - Prescribe steroid shampoo depending on insurance. - Avoid hair dye in the future. - Follow up with physical education specialist. Patient Instructions - Take prednisone as directed: 60 mg lola ly for five days. - Take Benadryl as directed: three times daily. - Contact a professional to help remove the hair dye from your scalp. - Check with the pharmacy for the cost o f the steroid shampoo. - Avoid using this hair dye product in t he future. - Follow-up with your physical education specialist . Consent Informed consent was obtained verbally from the patient regarding the continuation of prednisone and antihistamine treatment. The patient understood the rationale, risks, and alternatives discussed during the visit, specifically the potential lack of full symptomatic control due to dye presence in the hair follicles. The patient consented to check the cost of the prescribed steroid shampoo independently. Patient was informed and verbally consented to the use of an ambient scribe for clinic note documentation during this visit. Total time spent caring for the patient today was 40 minutes. This includes time spent before the visit reviewing the chart, time spent during the visit, and time spent after the visit on documentation, reviewing laboratory results, diagnostic imaging, medications, performing a medically necessary evaluation, counseling on diagnoses, care coordination, ordering appropriate tests, ordering appropriate medications, review of tests performed by other providers, reporting test results with the patient, communication with other healthcare providers. [facility] Social History Housing: Apartment Patient Tobacco Use Status: Never used Tobacco e-Cigarette/Vaping Use: Never Used Second Hand Smoke Exposure: No service: No Current occupational status: unemployed Cognitive needs: No Hearing needs: No Vision needs: No Physical Exam Vital Signs: Last Vital Signs Temp 97.6 F 11/06/24 13:55 Pulse 58 11/06/24 13:55 Resp 12 11/06/24 13:55 BP 99/68 11/06/24 13:55 Pulse Ox 98 11/06/24 13:55 Oxygen Delivery Method Room Air 11/06/24 13:55 BMI result Body Mass Index 34.2 Assessment & Plan Assessment & Plan (1) Hospital discharge follow-up: Code(s): Z09 - Encounter for follow-up examination after completed treatment for conditions other than malignant neoplasm (2) Allergic reaction: Code(s): T78.40XA - Allergy, unspecified, initial encounter Qualifiers: Encounter type: initial encounter Qualified Code(s): T78.40XA - Allergy, unspecified, initial encounter Plan . Medications: New 2 clobetasol 0.05% 1 appl topical BEDTIME 118 mL 0RF 4 weeks Coding Level of Care Code Est Pt Level 5 (45313) Diagnoses Hospital discharge follow-up Z09 Allergic reaction, initial encounter T78.40XA Encounter type: initial encounter
[2024-11-06 13:55] VITALS: BP 99/68; PULSE 58; RESP 12; TEMP 36.4; O2SAT 98; BMI 34.2
--- OUTSIDE RECORDS SUMMARY | 2024-11-06 15:25 | XMS_ITS | Clinical Summary ---
Author Organization [employer] Address [address] [place] [address] Care Team Providers Care Sock Boarder Name Role Phone Unavailable Primary Care Provider [...] Years) and At-Risk Patients (6 to 49) Years (1 of 2 - PCV) 2005 Pap Smear 09/23/2007 Cervical Cancer Screening 2016 HPV/Cotest 2016 Dental X-Ray: Bitewings 09/10/2017 09/09/2016 Dental X-Ray: Full Mouth 09/11/2019 09/09/2016 Dental Oral Exam 12/03/2023 06/03/2023, 05/15/2016 Dental Prophylaxis 12/03/2023 06/03/2023, 05/15/2016 COVID-19 Vaccine (1 - 2023-2 5 season) 2024 Tobacco Screening 06/03/2024 06/03/2023 Influenza Vaccine (Season Ended) 2025 04/27/2022, 04/14/2019, 04/22/2018 DTaP/Tdap/Td Vaccines (2 - T d or [...] Most Recently Relevant to Health Maintenance [facility] AD[place] DENTAL - HSN FULL (MEDICAID)
== END 2024-11-06 14:16 | disposition home or self-care (01) ==
LOC: HO.HMCFM 13:46
PROVIDERS: PCP Nurse Practitioner Family; Visit Provider Nurse Practitioner Family
DX: T78.40XA Allergy, unspecified, initial encounter (principal); Z09 Encounter for follow-up examination after completed treatment for conditions other than malignant neoplasm

== ENCOUNTER → 2024-11-06 13:46 | Outpatient (BNVA) | payer OTHER, SELFPAY | PROVIDERS: PCP Nurse Practitioner Family; Visit Provider Nurse Practitioner Family | DX: L23.4 Allergic contact dermatitis due to dyes (principal); T65.6X1A Toxic effect of paints and dyes, not elsewhere classified, accidental (unintentional), initial encounter; Y92.9 Unspecified place or not applicable; Z09 Encounter for follow-up examination after completed treatment for conditions other than malignant neoplasm | CPT/HCPCS: 99212 ==

== ENCOUNTER 2024-11-17 12:24 | Outpatient (AMB) | payer OTHER, SELFPAY ==
--- NOTE | 2024-11-17 12:26 | MHC.PC.OV ---
Vital Signs 11/17/24 12:36 Height 4 ft 7 in Weight 148 lb BMI 34.4 BP 102/66 Blood Pressure Location Lt brachial Position Sitting Respiration 12 Pulse 62 Pulse Source Pulse Oximeter Temp 97.1 F Temp Source Oral Pulse Oximetry (%) 99 Oxygen Delivery Method Room Air Intake Visit Reasons: Itchy body, possible allergy Intake Note: Patient c/o body itching all over body and red rash behind neck and all over body x 3 weeks. Patient requesting lab work. High School Foreign Language Teacher Required: Yes High School Foreign Language Teacher Language: Wendy High School Foreign Language Teacher Name: Alicia [id number] Allergies No Known Allergies Allergy (Verified 11/17/24 12:28) Medication List - Last Reconciled 11/17/24 by Linda Boogie, FACTORY MAINTENANCE TECHNICIAN-BC albuterol sulfate 90 mcg/actuation (Ventolin HFA) 2 puffs inhalation Q6H PRN budesonide-formoterol 160-4.5 mcg/actuation 2 puffs inhalation BID clobetasol 0.05% 1 appl topical BEDTIME 4 weeks diphenhydramine HCl (Banophen) mg PO fluticasone propionate 50 mcg/actuation (Flonase Allergy Relief) 1 spray intranasal BID ketotifen fumarate 0.025%(0.035%) (Zaditor) 1 drp ophthalmic (eye) Q12H PRN montelukast (Singulair) 10 mg PO BEDTIME prednisone 60 mg PO DAILY Tobacco use date assessed: 11/17/24 Dental Screening Dental Screen Date: 11/17/24 Did you have a dental visit in the last 12 months?: Yes Did you have a dental problem in the last 6 months where you did not have access to dental care?: No Was dental information given to patient?: Patient has dentist HPI HPI Comments History of Present Illness Details High School Foreign Language Teacher [id number] Here today w/ the same complaint as last visit She did not get the Shampoo I sent, as it cost $35 Used juan josé barillas Has not scheduled w/ Fishing Captain yet - states called and no appt given Unsure if taking meds as directed Exam today is the same as last time Advised explicitly with repeated instructions she needs to 1) get the hair dye OUT of her hair - go to a salon and ask for help 2) get the prescribed shampoo and use 3) Take all meds i have sent her for her multiple allergies and take as directed 4) SChedule an appt w/ hog raiser 5) Made her aware there is nothing more i can do. I will provide 5 additional days of pred to help the itch but made her aware this will not fix the problem. Total time spent caring for the patient today was 40 minutes. This includes time spent before the visit reviewing the chart, time spent during the visit, and time spent after the visit on documentation, reviewing laboratory results, diagnostic imaging, medications, performing a medically necessary evaluation, counseling on diagnoses, care coordination, ordering appropriate tests, ordering appropriate medications, review of tests performed by other providers, reporting test results with the patient, communication with other healthcare providers. At previous visit: History of Present Illness - The patient is a 39-year-old female presenting for ED fu, ED visit 11/05/24 for a rash. - Symptoms of allergic contact dermatitis began two days after using a new hair dye. - Located on scalp and behind the ears. - Experienced facial swelling and persistent itching. - Swelling and rash have improved after prednisone and Benadryl. - No history of previous reactions to hair dye. - Sent home w/ prednisone 60mg QD and benadryl 25mg TID, taking as directed w/improvement but not resolution Review of Systems - Skin: Reports rash and itching on the scalp and behind the ears. Reports swelling around the face. - Allergic/Immunologic: Reports use of new hair dye. Physical Exam See images below. No airway involvement Discussion Notes I discussed with the patient that the symptoms are consistent with Allergic Contact Dermatitis due to the new hair dye used. I explained that the allergens may reside in the hair follicles, making it difficult to fully resolve the symptoms without professionally removing the dye. I recommended continuation of current medications?prednisone and Benadryl. Additionally, I suggested considering a prescription steroid shampoo to help alleviate the symptoms further, though I indicated that her insurance might not cover its cost. I instructed the patient to inquire about the cost at the pharmacy. Finally, I advised her to contact her donor specialist for further evaluation and ensure no further use of the offending hair dye product. Assessment and Plan 1. Allergic Contact Dermatitis - Continue prednisone 60 mg daily, Benadryl three times daily. - Consider hair dye removal professionally. - Prescribe steroid shampoo depending on insurance. - Avoid hair dye in the future. - Follow up with donor specialist. Patient Instructions - Take prednisone as directed: 60 mg daily for five days. - Take Benadryl as directed: three times daily. - Contact a professional to help remove the hair dye from your scalp. - Check with the pharmacy for the cost of the steroid shampoo. - Avoid using this hair dye product in the future. - Follow-up with your donor specialist. [facility] Social History Housing: Apartment Patient Tobacco Use Status: Never used Tobacco e-Cigarette/Vaping Use: Never Used Second Hand Smoke Exposure: No service: No Current occupational status: unemployed Cognitive needs: No Hearing needs: No Vision needs: No Questionnaire PHQ-9 Over the last 2 weeks, how often have you been bothered by any of the following problems? 1. Little interest or pleasure in doing things: not at all 2. Feeling down, depressed, or hopeless: not at all 3. Trouble falling or staying asleep, or sleeping too much: not at all 4. Feeling tired or having little energy: not at all 5. Poor appetite or overeating: not at all 6. Feeling bad about yourself - or that you are a failure or have let yourself or your family down: not at all 7. Trouble concentrating on things, such as reading the newspaper or watching television: not at all 8. Moving or speaking so slowly that other people could have noticed. Or the opposite - being so fidgety or restless that you have been moving around a lot more than usual: not at all 9. Thoughts that you would be better off or of hurting yourself in some way: not at all Total score: 0 Depression Screening Interpretation: Negative Depression Screening Done: Yes 24997 - PHQ-9 Billing: Yes Source: Developed by Drs. Jeremy Tristan, Kayla Toure, Bayron Manrique and colleagues, with an educational britt from [employer]. Thrive Questionnaire Date Thrive assessed: 11/17/24 I am a: Patient What is your living situation today?: I have a steady place to live Within the past 12 months, did the food you bought not last and you didn't have the money to get more?: Never true Within the past 12 months, did you worry whether your food would run out before you got money to buy more?: Never true Do you have trouble paying for medicines?: No Do you have trouble getting transportation to medical appointments?: No Do you have trouble paying your heating and electricity bill?: No Do you have trouble taking care of your child, family member or friend?: No Do you have trouble with day-to-day activities such as bathing, preparing meals, shopping, managing finances, etc.?: No Are you currently unemployed and looking for a job?: No Are you interested in more education?: No THRIVE Score: 0 ARI-7 AMB Questionnaire ARI-7 Date ARI - 7 assessed: 11/17/24 Feeling nervous, anxious, or on edge: 0 = Not at all Not being able to stop or control worryin = Not at all Worrying too much about different things: 0 = Not at all Trouble relaxin = Not at all Being so restless that it is hard to sit still: 0 = Not at all Becoming easily annoyed or irritable: 0 = Not at all Feeling afraid as if something awful might happen: 0 = Not at all Total ARI-7 score (0-4 normal; 5-9 mild; 10-14 moderate; 15-21 severe): 0 Source: Developed by Drs. Jeremy Tristan, Kayla Toure, Bayron Manrique and colleagues, with an educational britt from [employer]. ARI-7 Assessment Billing ARI-7 Assessment Tool: ARI-7 Assessment 50295 Physical exam (Primary Care) Vital Signs: Last Vital Signs Temp 97.1 F 11/17/24 12:36 Pulse 62 11/17/24 12:36 Resp 12 11/17/24 12:36 BP 102/66 11/17/24 12:36 Pulse Ox 99 11/17/24 12:36 Oxygen Delivery Method Room Air 11/17/24 12:36 BMI result Body Mass Index 34.4 Tobacco/Smoking Status: Tobacco use Status Tobacco use date assessed 11/17/24 11/17/24 12:29 Patient Tobacco Use Status Never used Tobacco 11/17/24 12:29 e-Cigarette/Vaping Use Never Used 11/17/24 12:29 PHQ-9: PHQ-9 Score PHQ-9: Total score 0 11/17/24 12:29 Depression Screening Interpretation: Negative Thrive Assessment: Date of Thrive Assessment Date Thrive assessed 11/17/24 11/17/24 12:29 Coding Level of Care Code Est Pt Level 5 (88857) Complex EM visit Add On G2211 Diagnoses Allergic reaction, subsequent encounter T78.40XD Encounter type: subsequent encounter Additional Codes ARI-7 Assessment Billing - ARI-7 Assessment Tool: ARI-7 Assessment 58154 ([id number]) PHQ-9 - 85708 - PHQ-9 Billing: Yes ([id number]) Assessment & Plan Assessment & Plan (1) Allergic reaction: Code(s): T78.40XA - Allergy, unspecified, initial encounter Qualifiers: Encounter type: subsequent encounter Qualified Code(s): T78.40XD - Allergy, unspecified, subsequent encounter Plan . Medications: New prednisone 50 mg PO DAILY 5 tabs 0RF
[2024-11-17 12:36] VITALS: BP 102/66; PULSE 62; RESP 12; TEMP 36.2; O2SAT 99; BMI 34.4
--- OUTSIDE RECORDS SUMMARY | 2024-11-17 13:11 | XMS_ITS | Clinical Summary ---
Author Organization [employer] Address [address] [place] [address] Care Team Providers Care Hydrometer Finisher Name Role Phone Unavailable Primary Care Provider [...] 1-dose 75+ series) 2061 HIV Screening Completed 08/19/2023, 08/19/2023 HIB Vaccines Aged Out No longer [...] topic Meningococcal Vaccine Aged Out No david ucca eligible based on patient's age to complete [...] Most Recently Relevant to Health Maintenance Insurance DENTAL-[facility] MEDICAID STAND ADULT DENTAL-[place] ADULT DENTAL - HSN FULL (MEDICAID)
== END 2024-11-17 16:51 | disposition home or self-care (01) ==
LOC: HO.HMCFM 12:25
PROVIDERS: PCP Nurse Practitioner Family; Visit Provider Nurse Practitioner Family
DX: T78.40XD Allergy, unspecified, subsequent encounter (principal)

== ENCOUNTER → 2024-11-17 12:24 | Outpatient (BNVA) | payer OTHER, SELFPAY | PROVIDERS: PCP Nurse Practitioner Family; Visit Provider Nurse Practitioner Family | DX: L23.9 Allergic contact dermatitis, unspecified cause (principal); Z79.52 Long term (current) use of systemic steroids | CPT/HCPCS: 96127; 99212 ==

== ENCOUNTER 2025-01-16 10:15 | Outpatient (AMB) | payer OTHER, SELFPAY ==
--- NOTE | 2025-01-16 10:17 | AM.OFFWIN_ITS ---
Intake Vital Signs 01/16/25 10:25 Height 4 ft 7 in Weight 152 lb 4 oz BMI 35.4 BP 98/66 Blood Pressure Location Lt brachial Position Sitting Respiration 12 Pulse 72 Pulse Source Pulse Oximeter Temp 97.2 F Temp Source Oral Pulse Oximetry (%) 99 Oxygen Delivery Method Room Air Intake Visit Reasons: Body pain / headaches Intake Note: Patient c/o severe, sneezing, body aches, irritated watery eyes and headaches x3 -4 days. Patient Tobacco Use Status: Never used Tobacco Tax Record Clerk Required: Yes Tax Record Clerk Language: Wendy Tax Record Clerk Name: brigid [id number] Allergies No Known Allergies Allergy (Verified 01/16/25 10:47) Medication List - Last Reconciled 01/16/25 by Linda Boogie, POURED PIPE MAKER- albuterol sulfate 90 mcg/actuation (Ventolin HFA) 2 puffs inhalation Q6H PRN budesonide-formoterol 160-4.5 mcg/actuation 2 puffs inhalation BID clobetasol 0.05% 1 appl topical BEDTIME 4 weeks diphenhydramine HCl (Banophen) mg PO fluticasone propionate 50 mcg/actuation (Flonase Allergy Relief) 1 spray intranasal BID ketotifen fumarate 0.025%(0.035%) (Zaditor) 1 drp ophthalmic (eye) Q12H PRN montelukast (Singulair) 10 mg PO BEDTIME Do you need a note to return to daycare/school/sports/work: No HPI HPI Comments History of Present Illness Details InterpreterL [id number] 3-4 days 39-year-old female presenting with eczem a, obesity, asthma and allergic rhinitis History of Present Illness - The patient is a 39-year-old female pr esenting with allergy sx. - Symptoms started three to four days ag o. - Reports sneezing, intermittent headach es, no fever. - Had consult w/ director of publications, new order abner coelho, taking as directed,breathing is good; she will be starting allergy shots next month - Took benadryl which made her fall asle ep and did help; tried apap and motrin w/o relief - lovs the flonase, thinks this works gr eat Review of Systems - Respiratory: Reports no cough; Denies shortness of breath. - Neurological: Reports intermittent hea daches; Denies dizziness. - Ears, Nose, Throat: Reports sneezing; Denies sore throat. - General: Denies fever. Physical Exam General: Well developed, well nourished, in no acute distress. Appears stated age. Head: Normocephalic, atraumatic. Reports headaches sometimes coming and going. Eyes: Pupils are equal, round and reactive to light and accommodation. Conjunctivae are clear. Ears: TM intact and clear bilat Nose: turbinates pale and edematous bilat, no sinus tenderness w palp Pharynx: clear, no ac adenopathy Lungs: Clear to auscultation bilaterally. No rales, rhonchi or wheeze noted. Good air flow in all valdez. No cough noted. Heart: Regular rate and rhythm. No murmurs, click, rubs or gallops are noted. Skin: PWD Discussion Notes I discussed with the patient that her symptoms are likely due to either allergic rhinitis or a viral upper respiratory infection. We plan to manage symptoms with a short course of prednisone to assist in reducing the sneezing and headaches, while ensuring it does not interfere with her upcoming allergy shots. I explained the importance of continuing the current allergy shots schedule to help mitigate her underlying allergic rhinitis symptoms in the [facility]. I emphasized that if prednisone is taken before the allergy shots, it may affect the scheduling and efficacy, thus only prescribing it for three days. I advised her on the benefits of the allergy shots and to continue her medication regimen. Follow-up instructions were given, and she was encouraged to return if symptoms worsen or if new symptoms develop. Prescriptions for prednisone, Trelegy inhaler, and a nasal spray were sent to her designated pharmacy. I wished her well with the allergy treatment plan. Patient was given time to ask questions. All questions were answered to their satisfaction. Assessment and Plan 1. Allergic Rhinitis - Continue allergy shots. - Short-term prednisone for flare-up. - Use nasal spray - refill sent 2. Asthma - Maintain on Trelegy inhaler. refill s ent - Monitor for exacerbations. 3. Viral Upper Respiratory Infection - Symptomatic care advised. - Prednisone for acute symptoms. Patient Instructions - Continue to take your inhaler daily as prescribed. - Take prednisone as prescribed for thre e days only. - Use nasal spray for nasal symptoms as needed. - Attend your allergy shot appointment n ext month. - If symptoms worsen or do not improve, return for evaluation. - Visit [facility] to parts picker your p rescribed medications. Consent Patient was informed and verbally consented to the use of an ambient scribe for clinic note documentation during this visit Total time spent caring for the patient today was 30 minutes. This includes time spent before the visit reviewing the chart, time spent during the visit, and time spent after the visit on documentation, reviewing laboratory results, diagnostic imaging, medications, performing a medically necessary evaluation, counseling on diagnoses, care coordination, ordering appropriate tests, ordering appropriate medications, review of tests performed by other providers, reporting test results with the patient, communication with other healthcare providers. [facility] Social History Housing: Apartment Patient Tobacco Use Status: Never used Tobacco e-Cigarette/Vaping Use: Never Used Second Hand Smoke Exposure: No service: No Current occupational status: unemployed Cognitive needs: No Hearing needs: No Vision needs: No Physical Exam Vital Signs: Last Vital Signs Temp 97.2 F 01/16/25 10:25 Pulse 72 01/16/25 10:25 Resp 12 01/16/25 10:25 BP 98/66 01/16/25 10:25 Pulse Ox 99 01/16/25 10:25 Oxygen Delivery Method Room Air 01/16/25 10:25 BMI result Body Mass Index 35.4 Assessment & Plan Assessment & Plan (1) Rhinitis: Code(s): J31.0 - Chronic rhinitis Qualifiers: Rhinitis type: chronic Qualified Code(s): J31.0 - Chronic rhinitis (2) Environmental and seasonal allergies: Code(s): J30.89 - Other allergic rhinitis (3) Mild intermittent asthma: Comment: in exacerbation Code(s): J45.20 - Mild intermittent asthma, uncomplicated Qualifiers: Asthma complication type: uncomplicated Qualified Code(s): J45.20 - Mild intermittent asthma, uncomplicated Plan . Medications: New prednisone 40 mg (2 x 20 mg) PO DAILY 6 tabs 0RF [id number] 200-62.5-25 mcg (Trelegy Ellipta) 1 inh inhalation DAILY 60 ea 12RF Refilled fluticasone propionate 50 mcg/actuation (Flonase Allergy Relief) administer into each nostril 1 spray intranasal BID 16 grams 12RF Coding Level of Care Code Est Pt Level 4 (31744) Diagnoses Chronic rhinitis J31.0 Rhinitis type: chronic Environmental and seasonal allergies J30.89 Mild intermittent asthma without complication J45.20 Asthma complication type: uncomplicated
[2025-01-16 10:25] VITALS: BP 98/66; PULSE 72; RESP 12; TEMP 36.2; O2SAT 99; BMI 35.4
--- OUTSIDE RECORDS SUMMARY | 2025-01-16 10:57 | XMS_ITS | Clinical Summary ---
Author Organization [employer] Address [address] [place] [address] Care Team Providers Care X Ray Equipment Mechanic Name Role Phone Unavailable Primary Care Provider [...] Use Screening 1998 Family Planning (PISQ) 2001 HPV Vaccines (1 - 3-dose series) 2001 Hepatitis C Screening 2004 Hepatitis B [...] 2024 Tobacco Screening 06/03/2024 06/03/2023 Influenza Vaccine (#1) 2025 , 04/14/2019, 04/22/2018 DTaP/Tdap/Td Vaccines (2 - T [...] Most Recently Relevant to Health Maintenance Insurance DENTAL-[facility] MEDICAID STAND ADULT [place]AL[place] ADULT DENTAL - HSN FULL (MEDICAID)
--- OUTSIDE RECORDS SUMMARY | 2025-01-16 10:57 | XMS_ITS | Clinical Summary ---
Author Organization [facility] Address [address] [place] [address] Care Team Providers Care Tape Rules Printing Machine Operator Name Role Phone Bhupendra Fang ALLRED-Gabriele Primary Care Provider [phone] Source Comments PLEASE NOTE, if this patient is a minor, it may be UNLAWFUL to discuss sensitive information that is contained in these records (such as FAMILY PLANNING, MENTAL HEALTH or SUBSTANCE ABUSE) with the minor patient's parent or other person without the patient's specific authorization.[facility] Allergies No known active allergies Medications budesonide-formot Arthur (SYMBICORT) 160-4.5 mcg/actuation inhalerIndication s:Moderate persistent asthma without complication ([facility]) Inhale 1 Puff into the lungs 2 (two) times daily Rinse mouth after use. Strength: 160-4.5 mcg/actuati on 10.2 g 11 02/24/2024 Active ibuprofen 600 mg tabletIndications :Viral upper respiratory tract infection Take 1 Tablet by mouth 4 (four) times daily as needed for pain 30 Tablet 2 06/27/2024 Active Active Problems Problem Noted Date Diagnosed Date Moderate persistent asthma without complication ([facility]) 06/02/2022 History of COVID-19:05/12/2021 05/15/2021 Immunizations Immunization [...] Sign Reading Time Taken Comments Blood Pressure 118/72 09/05/2024 4:32 PM EDT Pulse 74 09/05/2024 4:32 PM EDT Temperature 36.5 C (97.7 F) 08/19/2023 1:17 PM EDT Respiratory Rate 16 08/19/2023 1:17 PM EDT [...] Imm-Pneumococcal (1 of 2 - PCV) 2005 [id number] ( - season) 2024 Alcohol and Drug Screen 05/24/2024 08/19/2023, 09/21 Depression Annual Screen 05/24/2024 08/19/2023 Pap Smear 06/17/2024 06/17/2021 Annual Wellness (Adult): Ind icated (All Coverage) 08/18/2024 08/19/2023, 04/14/2019 Relationship Safety Screening/Counseling 08/18/2024 08/19/2023, 04/14/2019 Imm-Influenza (#1) 2025 04/27/2022, 1 06/14/2018, 04/22/2018 Tobacco Screening 09/05/2025 09/05/2024, 08/19/2023 Dental BW 09/07/2025 09/05/2024, 12/22/2023 Dental Examination 09/07/2025 09/05/2024, 12/22/2023 Dental Perio Charting 09/07/2025 09/05/2024 Dental Prophy 09/07/2025 09/05/2024, 01/03/2024 Cervical Cancer Screening 06/17/2026 Pap + HPV 06/17/2026 06/17/2021 Diabetes Screening 08/18/2026 08/19/2023, 08/19/2023 Hypertension Screening (#1) 09/05/2027 Dental FMX/Pano 12/23/2028 12/22/2023 Imm-DTaP/Tdap/Td (2 - Td or Tdap) 04/14/2029 019 HIV Screening Completed 08/19/2023 Hepatitis C Screening Completed 08/19/2023 Cervical Ablation/Cold-Knife Conization Discontinued Cervical Cryotherapy Discontinued Colposcopy Discontinued Endometrial Biopsy Discontinued Excision/Leep Discontinued HPV Genotyping Discontinued Vaginal Pap Discontinued Vulvoscopy Discontinued Procedures Procedure Name Priority Date/Time Associated Diagnosis Comments BITEWINGS - FOUR RADIOGRAPHIC IMAGES Routine 09/05/2024 4:20 PM EDT Encounter for dental examination and cleaning without abnormal findings PROPHYLAXIS - ADULT Routine 09/05/2024 4 :20 PM EDT Encounter for dental examination and cleaning without abnormal findings PERIODIC ORAL EVALUATION ESTABLISHED PATIENT Routine 09/05/2024 4:20 PM EDT Encounter for dental examination and [...] HEPATITIS C ANTIBODY NON-REACT LUISITO NON-REACT LUISITO [facility] Comment: HCV antibody was non-reactive. There is no laboratory evidence of HCV infection. In most cases, no further action is required. However, if recent HCV exposure is suspected, a test for HCV RNA (test code 78939) is suggested. For additional information please refer to http://education.Algaeon/faq/QZJ26r6 (This link is being provided for informational/ educational purposes only.) Blood Blood / Unknown 08/19/2023 2 :07 PM EDT 08/19/2023 2:08 PM EDT Narrative [employer] [employer] [facility] - 08/20/2023 10:21 AM EDT FASTING:UNKNOWN us Fang Huizar SEWER PIPE LAYER HELPER-C LAB - BLOOD DRAW Edited R esult - Final [facility] [address] [address], [employer] [facility] [address] [place] [address] * HIV 1/2 AG & AB W/RFLX (4TH GEN) (08/19/2023 2:07 PM EDT) Pathologist [facility] HIV AG/AB, 4TH GEN NON-REAC TIVE NON-REAC TIVE [employer] [facility] Comment: HIV-1 antigen and HIV-1/HIV-2 antibodies were not detected. There is no laboratory evidence of HIV infection. PLEASE NOTE: This information has been disclosed to you from records whose confidentiality may be protected by state law. If your state requires such protection, then the state law prohibits you from making any further disclosure of the information without the specific written consent of the person to whom it pertains, or as otherwise permitted by law. A general authorization for the release of medical or other information is NOT sufficient for this purpose. For additional information please refer to http://education.Algaeon/faq/CCX890 (This link is being provided for informational/ educational purposes only.) The performance of this assay has not been clinically validated in patients less than 2 years old. Blood Blood / Unknown 08/19/2023 2 :07 PM EDT 08/19/2023 2:08 PM EDT Narrative [facility] - 08/20/2023 10:21 AM EDT FASTING:UNKNOWN Fang Huizar SEWER PIPE LAYER HELPER-C LAB - BLOOD DRAW Final Re sult [employer] [facility] [address] [address], [employer] [address] [address] * COMPREHENSIVE METABOLIC PANEL (08/19/2023 2:07 PM EDT) Pathologist [facility] GLUCOSE 87 65 - 99 mg/dL [employer] [facility] Comment: Fasting reference interval UREA NITROGEN (BUN) 15 7 - 25 mg/dL [employer] [facility] CREATININE (blood) 0.65 0.50 - 0.97 mg/dL [employer] [facility] EGFR 117 > OR = 60 mL/min/1. 73m2 [facility] BUN/CREATININE RATIO SEE NOTE: [facility] Comment: Not Reported: BUN and Creatinine are within reference range. SODIUM 138 135 - 146 mmol/L [facility] [place] [facility] POTASSIUM 4.3 3.5 - 5.3 mmol/L [facility] CHLORIDE 105 98 - 110 mmol/L [facility] CARBON DIOXIDE 26 20 - 32 mmol/L [facility] CALCIUM 8.9 8.6 - 10.2 mg/dL [facility] PROTEIN, TOTAL 6.9 6.1 - 8.1 g/dL [facility] [place] [facility] ALBUMIN 4.3 3.6 - 5.1 g/dL [facility] GLOBULIN 2.6 1.9 - 3.7 g/dL (calc) [facility] ALBUMIN/GLOBULI N RATIO 1.7 1.0 - 2.5 (calc) [facility] BILIRUBIN, TOTAL 0.4 0.2 - 1.2 mg/dL [facility] ALKALINE PHOSPHATASE 38 31 - 125 U/L [facility] AST 12 10 - 30 U/L [facility] ALT 11 6 - 29 U/L [facility] [place] [facility] Blood Blood / Unknown 08/19/2023 2 :07 PM EDT 08/19/2023 2:08 PM EDT Narrative [employer] - 08/20/2023 10:21 AM EDT FASTING:UNKNOWN Fang Huizar SEWER PIPE LAYER HELPER-C LAB - BLOOD DRAW Edited R esult - Final [employer] [address] [address], [facility] [address] [place] [address] * THINPREP PAP & HPV MRNA E6/E7 RFLX HPV 16,18/[address]/NG (06/17/2021 2:45 PM EST) CLINICAL INFORMATION See Note [facility] Comment:Routine exam LMP See Note [facility] Comment:[id number] PREV. PAP See Note [facility] Comment:NONE GIVEN PREV. BX See Note [facility] Comment:NONE GIVEN SOURCE See Note [facility] Comment:Cervix STATEMENT OF ADEQUACY See Note [facility] Comment: Satisfactory for evaluation. Endocervical/transformation zone component present. INTERPRETATION/RESU LT See Note [facility] Comment:Negative for intraep ithelial lesion or malignancy. VENEER LATHE OPERATOR See Note [facility] [employer] [facility] Comment: RMM, CT(ASCP) CT screening location: [place] [address] COMMENT [facility] HPV MRNA E6/E7 Not Detected Not Detected [facility] Comment: Methodology: [employer]-Mediated Amplification This assay detects E6/E7 viral messenger RNA (mRNA) from 14 high-risk HPV types (16,18,31,33,35,39,45,51,52,56,58,59,66,68). The analytical performance characteristics of this assay have been determined by [email or web address]. The modifications have not been cleared or approved by the FDA. This assay has been validated pursuant to the CLIA regulations and is used for clinical purposes. For additional information, please refer to http://Dennoo.Algaeon/faq/JRR675r9 (This link if provided for information/ educational purposes only.) CHLAMYDIA TRACHOMATIS RNA, TMA NOT DETECTED NOT DETECTED [facility] NEISSERIA GONORRHOEAE RNA, TMA NOT DETECTED NOT DETECTED [facility] COMMENT [facility] CYTOLOGY Cervix uteri structure / Unknown 06/17/2021 2:45 PM EST 06/18/2021 6:10 AM EST Narrative [facility] - 06/19/2021 8:40 AM EST EXPLANATORY NOTE: [...] test SurePath(TM) specimens have been determined by [email or web address]. The modifications have not been cleared or approved by the FDA. This assay has been validated pursuant to the CLIA regulations and is used for clinical purposes. For additional information, please refer to https://Dennoo.Algaeon/faq/XEE287 (This link is being provided for information/ educational purposes only.) Francia Thomas CNM LAB - PATHOLOGY AND CYTOLOG Y AMBULATORY Final Result [facility] [address] [address], [facility] [place] [facility] [address] [address] from Last 3 Months or Most Recently Relevant to Health Maintenance Insurance [place] [employer] [place] [employer] [place] [place] Care Teams Tape Rules Printing Machine Operator Relationship Specialty Start Date End Date Fang Huizar FNP-C [facility] [place] [address] PCP - General Internal Medicine 06/02/23
--- OUTSIDE RECORDS SUMMARY | 2025-01-16 10:57 | XMS_ITS | Encounter Summary ---
Author Organization [facility] Address [address] [place] [address] Care Team Providers Care General Maintenance Mechanic Name Role Phone Fang Huizar-Gabriele Primary Care Provider [phone] Encounter Details Date Type Department Care Team (Late st Contact Info) Description 05/09/2019 Interim Notes [address] [id number] [address] [address] Social History Tobacco Use Types Packs/Day Years [...] documented as of this encounter Care Teams General Maintenance Mechanic Relationship Specialty Start Date End Date Fang Huizar FNP-C [address] [place] [address] PCP - General Internal Medicine 06/02/23 documented as of this encounter
--- OUTSIDE RECORDS SUMMARY | 2025-01-16 10:57 | XMS_ITS | Clinical Summary ---
Author Organization [facility] Address [address] [address] Phone Care Team Providers Care Medical Laboratory Assistant Name Role Phone Pcp, Unknown Primary Care Provider Unavailabl e Allergies No known active allergies Medications No known medications Active Problems Problem Noted Date Diagnosed Date Moderate persistent asthma without complication 06/02/2022 Social History Tobacco Use Types Packs/Day Years Used Date Smoking Tobacco: Never Assessed Education Answer Date Recorded Are you interested in more education? Not on muriel e 05/14/2024 Are you concerned about learning? Not on file 05/14/2024 No 05/14/2024 No 05/14/2024 Digital Access Answer Date Recorded No 05/14/2024 No 05/14/2024 Reliable internet access at home? Not on file 05/14/2024 Device with a working camera? Not on file Comments Unknown Sex and Gender Information Value Date Recorded Sex Assigned at Not on file Legal Sex Female 2:41 PM EST Gender Identity Not on file Sexual Orientation Not on file Last Filed Vital Signs Vital Sign Reading Time Taken Comments Blood Pressure 124/85 09/19/2024 5:51 PM EDT Pulse 75 09/19/2024 5:51 PM EDT Temperature 37.4 C (99.4 F) 09/19/2024 5:51 PM EDT Respiratory Rate 16 09/19/2024 5:51 PM EDT Oxygen Saturation 97% 09/19/2024 5:51 PM EDT Inhaled Oxygen Concentration - - Weight - - Height - - Body Mass Index - - Plan of Treatment Health Maintenance Due Date Last Done Comments DEPRESSION SCREENING 1998 SMOKING Hx and SMOKELESS TOB ACCO SCREENING 09/23/1999 HIV ONE-TIME SCREENING (18-6 5 YEARS) 2004 PNEUMOCOCCAL VACCINES (0-49 years) (1 of 2 - PCV) 2005 PAP SMEAR 09/23/2007 COVID-19 VACCINE (2023-2 5 season) 2024 Adult Td,Tdap Booster 04/14/2029 04/14/2019 HEPATITIS C SCREENING Completed 08/19/2023 HEPATITIS A VACCINES Aged Out No long er eligible based on patient's age to complete this topic HIB VACCINES Aged Out No longer eligi ble based on patient's age to complete this topic MENINGOCOCCAL VACCINES (ACWY) Aged Out No longer eligible based on patient's age to complete this topic MENINGOCOCCAL VACCINES (B) Aged Out N o longer eligible based on patient's age to complete this topic Medical Devices Not on file Insurance [facility] NON NSPG PCP [facility] CONNE[facility] NON NSPG PCP [facility] [employer] NON NSPG PCP [facility] NON NSPG PCP S[facility] CONNE[employer] [employer] NON NSPG PCP [facility] [place] Care Teams Medical Laboratory Assistant Relationship Specialty Start Date End Date Pcp, Unknown PCP - General 05/14/24 Additional Source Comments The information contained in this document represents components of the legal health record. It is not the complete legal health record.[facility]
== END 2025-01-16 11:18 | disposition home or self-care (01) ==
LOC: HO.HMCFM 10:16
PROVIDERS: PCP Nurse Practitioner Family; Visit Provider Nurse Practitioner Family
DX: J31.0 Chronic rhinitis (principal); J30.89 Other allergic rhinitis; J45.20 Mild intermittent asthma, uncomplicated

== ENCOUNTER → 2025-01-16 10:15 | Outpatient (BNVA) | payer OTHER, SELFPAY | PROVIDERS: PCP Nurse Practitioner Family; Visit Provider Nurse Practitioner Family | DX: J45.20 Mild intermittent asthma, uncomplicated (principal); L30.9 Dermatitis, unspecified; E66.9 Obesity, unspecified; J31.0 Chronic rhinitis | CPT/HCPCS: 99212 ==